=== PATIENT | female | born 1955 | race Hispanic/Latino ===

== ENCOUNTER 2017-08-07 07:05 | Emergency (ER) | payer MEDICARE ==
[2017-08-07] MEDS ORDERED: ACETAMINOPHEN 325 MG TAB ONE (07:23)
[2017-08-07] MEDS ORDERED: KETOROLAC TROMETHAMINE 30MG/ML ONE (07:23)
== END 2017-08-07 08:34 | disposition home or self-care (01) ==
LOC: EDH 07:05
DX: S62.668A Nondisplaced fracture of distal phalanx of other finger, initial encounter for closed fracture (principal); M25.552 Pain in left hip; W18.39XA Other fall on same level, initial encounter; Y93.01 Activity, walking, marching and hiking; Y92.89 Other specified places as the place of occurrence of the external cause; Y99.8 Other external cause status
CPT/HCPCS: 29130; 73140; 96372; 99284; J1885

== ENCOUNTER 2017-08-23 21:13 | Emergency (ER) | payer MEDICARE ==
[2017-08-23] MEDS ORDERED: ACETAMINOPHEN EXTRA STRENGTH 500 MG TABLET ONE (21:45)
[2017-08-23] MEDS ORDERED: KETOROLAC TROMETHAMINE 60 MG/2 ML VIAL ONE (21:45)
== END 2017-08-23 21:57 | disposition home or self-care (01) ==
LOC: EDH 21:13
DX: S80.02XA Contusion of left knee, initial encounter (principal); E11.9 Type 2 diabetes mellitus without complications; E78.5 Hyperlipidemia, unspecified; I10 Essential (primary) hypertension; Z79.4 Long term (current) use of insulin; Z88.1 Allergy status to other antibiotic agents; W01.0XXA Fall on same level from slipping, tripping and stumbling without subsequent striking against object, initial encounter; Y93.01 Activity, walking, marching and hiking; Y92.89 Other specified places as the place of occurrence of the external cause; Y99.8 Other external cause status
CPT/HCPCS: 73562; 96372; 99284; J1885

== ENCOUNTER 2018-08-05 08:31 | Emergency (ER) | payer MEDICARE ==
[2018-08-05 09:03] LABS: APPEARANCE,URINE TURBID (CLEAR); BILIRUBIN,URINE NEGATIVE (NEGATIVE); COLOR,URINE YELLOW (YELLOW); GLUCOSE, URINE (UA) 250 mg/dL (NEGATIVE); KETONES,URINE NEGATIVE (NEGATIVE); LEUKOCYTE ESTERASE ,URINE MODERATE (NEGATIVE); NITRATE,URINE NEGATIVE (NEGATIVE); OCCULT BLOOD,URINE LARGE (NEGATIVE); PH,URINE 6.5 (5.0-8.0); PROTEIN,URINE >=300 mg/dL (NEGATIVE); UROBILINOGEN,URINE 0.2 mg/dL (0.2-1.0)
[2018-08-05 09:25] LABS: RAPID GROUP A STREP NEGATIVE (NEGATIVE)
[2018-08-05 09:26] LABS: BACTERIA,URINE Many /HPF (None Seen); WBC,URINE TNTC /HPF (0-1)
[2018-08-05 09:27] LABS: SQUAMOUS EPITHELIAL CELL,UR Few /HPF (0-2); TRANSITIONAL EPI CELLS,URINE Few /HPF (None Seen)
[2018-08-05] MEDS ORDERED: CEFTRIAXONE SODIUM 1 GM ONE (09:48)
[2018-08-05] MEDS ORDERED: LIDOCAINE HCL-MPF 1% 2ML VIAL ONE (09:48)
== END 2018-08-05 10:59 | disposition home or self-care (01) ==
LOC: EDH 08:31
DX: N39.0 Urinary tract infection, site not specified (principal); R11.10 Vomiting, unspecified; I10 Essential (primary) hypertension; E11.9 Type 2 diabetes mellitus without complications; E78.5 Hyperlipidemia, unspecified; M19.90 Unspecified osteoarthritis, unspecified site; Z90.49 Acquired absence of other specified parts of digestive tract; Z98.890 Other specified postprocedural states; Z88.1 Allergy status to other antibiotic agents; Z88.2 Allergy status to sulfonamides
CPT/HCPCS: 81001; 87077; 87088; 87186; 87804 ×2; 87880; 96372; 99284; J0696; J3490

== ENCOUNTER 2019-06-26 12:36 | Inpatient (IN) | payer MEDICARE ==
[~2019-06-26] VITALS: Ht 160 cm; Wt 91.0 kg
[~2019-06-26 12:36] MED LIST: FLUC150T PO; HYDR25TA PO; INSU100V37 SQ; LOSA50TA64 PO; METR500T PO; NAPR-1023 PO; SITA100T12 PO; TRAM50TA4 PO
[2019-06-26] MEDS ORDERED: AMINOCAPROIC ACID 250 MG/ML 20 ML VIAL IV ONE (12:42)
[2019-06-26] MEDS ORDERED: ALBUMIN (HUMAN) 25% 50 ML IV ONE (12:42)
[2019-06-26] MEDS ORDERED: MANNITOL 25% 50ML VIAL IV ONE (12:42)
[2019-06-26] MEDS ORDERED: PHENYLEPHRINE HCL 10 MG/ML 1ML VIAL IV ONE (12:42)
[2019-06-26] MEDS ORDERED: CALCIUM CHLORIDE 100 MG/ML 10 ML SYG IVP ONE (12:42)
[2019-06-26] MEDS ORDERED: SODIUM BICARB 8.4% 50ML SYRINGE IVP ONE (12:42)
[2019-06-26] MEDS ORDERED: HEPARIN SODIUM 1000UNIT/ML 10ML VIAL IV ONE (12:42)
[2019-06-26] MEDS ORDERED: FUROSEMIDE 10 MG/ML 2ML VIAL IVP ONE (12:42)
[2019-06-26] MEDS ORDERED: MAGNESIUM SULFATE 1 GM/2 ML VIAL IM ONE (12:42)
[2019-06-26 13:15] VITALS: BP 174/70
[2019-06-26 13:47] LABS: BASOPHILS % (AUTO) 0.4 % (0.0-5.0); EOSINOPHILS % (AUTO) 3.5 % (0.0-8.0); HEMATOCRIT 37.8 % (36-48); LYMPHOCYTES % (AUTO) 20.9 % (21.0-51.0); MEAN CORPUSCULAR HEMOGLOBIN 28.2 pg (27.0-33.0); MEAN CORPUSCULAR HGB CONC 31.5 g/dL (32.0-36.0); MEAN CORPUSCULAR VOLUME 89.6 fL (79-99); MONOCYTES % (AUTO) 5.9 % (3.0-13.0); PLATELET COUNT (AUTO) 282 K/uL (130-400); RED BLOOD CELL COUNT(AUTO) 4.22 MIL/uL (4.00-5.50); RED CELL DISTRIBUTION WIDTH 13.9 % (11.0-15.5); WHITE BLOOD COUNT (AUTO) 7.1 K/uL (4.8-10.8)
[2019-06-26 13:59] LABS: INR 0.93 (0.85-1.15); PARTIAL THROMBOPLASTIN TIME 28.2 SEC (26.3-35.5); PROTHROMBIN TIME 10.1 SEC (9.6-11.6)
[2019-06-26 14:01] LABS: ALBUMIN 2.1 g/dL (3.5-5.0); BILIRUBIN,TOTAL 0.3 mg/dL (0.2-1.0); CREATININE 2.9 mg/dL (0.5-1.5); MAGNESIUM 2.9 mg/dL (1.80-2.40); TOTAL PROTEIN, SERUM 6.2 g/dL (6.0-8.3)
[2019-06-26 14:24] LABS: B-TYPE NATRIURETIC PEPTIDE 4110 pg/mL (0-100)
[2019-06-26] MEDS ORDERED: SITA50TA PO (15:30)
[2019-06-26] MEDS ORDERED: FERR325T22 PO (15:30)
--- NOTE | 2019-06-26 15:33 | NUR ---
DCP CM met with pt discussed dc plans. Pt is semi-independent prior to admission, lives at home alone, sometimes goes to boyfriend's home, daughter lives close by. Pt has a walker, provider 3hrs Mon-Fri and 1.5 hrs Sat/Sun, goes to [facility] during weekdays. Feels safe to go back home, daughter able to assist with transportation and needs as necessary. DC plan to home once stable. CM to cont to follow up. Addendum: 06/26/19 at 1536 by JASWANT BURRELL LVN CM Amended: Links added.
[2019-06-26 16:37] LABS: APPEARANCE,URINE Clear (CLEAR); BILIRUBIN,URINE Negative (NEGATIVE); COLOR,URINE Yellow (YELLOW); GLUCOSE, URINE (UA) 250 mg/dL (NEGATIVE); KETONES,URINE Negative (NEGATIVE); LEUKOCYTE ESTERASE ,URINE Negative (NEGATIVE); NITRATE,URINE Positive (NEGATIVE); OCCULT BLOOD,URINE Small (NEGATIVE); PROTEIN,URINE >=1000 mg/dL (NEGATIVE); UROBILINOGEN,URINE 0.2 mg/dL (0.2-1.0)
[2019-06-26 16:52] LABS: BACTERIA,URINE Many /HPF (None Seen); MUCUS,URINE Few LPF (None Seen)
[2019-06-26] MEDS ORDERED: HYDRALAZINE HCL 20 MG/ML VIAL IV PRN (18:00)
[2019-06-26] MEDS ORDERED: ACETAMINOPHEN 325 MG TAB PO PRN ×2 (18:00)
[2019-06-26] MEDS ORDERED: NITROGLYCERIN 0.4 MG SL TAB SL PRN (18:00)
[2019-06-26] MEDS ORDERED: GUAIFENESIN-DM 200/20 MG 10 ML PO PRN (18:00)
[2019-06-26 19:57] VITALS: BP 166/72
--- NOTE | 2019-06-26 20:45 | NUR ---
refused beck catheter patient refused beck catheter reporting that she is able to get up and go to the rr, explained that we needed accurate output while on diuretic therapy patient understood and further declined beck catheter at this time
[2019-06-26] MEDS: FUROSEMIDE 10 MG/ML 4ML VIAL IV SCH (21:15)
[2019-06-26] MEDS: INSULIN LISPRO 100 UNIT/ML 3ML SQ SCH (21:16)
[2019-06-26] MEDS: INSULIN GLARGINE 100 UNITS/ML 10 ML VIAL SQ SCH (21:20)
[2019-06-26 23:37] VITALS: BP 137/66
[2019-06-27 04:03] VITALS: BP 149/68
[2019-06-27 04:08] LABS: MEAN CORPUSCULAR HEMOGLOBIN 29.1 pg (27.0-33.0); MEAN CORPUSCULAR HGB CONC 32.6 g/dL (32.0-36.0); RED BLOOD CELL COUNT(AUTO) 3.82 MIL/uL (4.00-5.50); RED CELL DISTRIBUTION WIDTH 13.7 % (11.0-15.5); WHITE BLOOD COUNT (AUTO) 6.8 K/uL (4.8-10.8)
[2019-06-27 04:30] LABS: ALBUMIN 1.7 g/dL (3.5-5.0); BILIRUBIN,DIRECT 0.1 mg/dL (0.0-0.3); BILIRUBIN,TOTAL 0.2 mg/dL (0.2-1.0); CREATININE 3.3 mg/dL (0.5-1.5); PHOSPHORUS 5.2 mg/dL (2.5-4.9); POTASSIUM 3.7 mmol/L (3.5-5.1); THYROID STIMULATING HORMONE 1.62 uIU/mL (0.36-3.74); TOTAL PROTEIN, SERUM 5.3 g/dL (6.0-8.3); URIC ACID 6.1 mg/dL (2.6-7.2)
[2019-06-27] MEDS: INSULIN LISPRO 100 UNIT/ML 3ML SQ SCH ×7 (06:31→20:37)
[2019-06-27] MEDS: FUROSEMIDE 10 MG/ML 4ML VIAL IV SCH ×3 (06:40→20:37)
[2019-06-27 07:30] VITALS: BP 175/74
[2019-06-27] MEDS: FAMOTIDINE 20MG TAB 20 MG TAB PO SCH (09:31)
[2019-06-27] MEDS: ENOXAPARIN SODIUM 30 MG/0.3 ML SQ SCH (09:35)
--- NOTE | 2019-06-27 09:36 | NUR ---
BP ELEVATED -SEE V/S HYDRALAZINE NOT GIVEN DUE TO PATIENT REPORTS TOOK OWN HOME BP MEDICATIONS, LOSARTAN AND HYDROCHLORATHIZIDE AND UNABLE TO TELL ME DOSE BECAUSE SHE HAS IN PILL BOX. INSTRUCTED TO HOLD HOME MEDICATIONS UNTIL DR CONTINUES, VERBALIZED UNDERSTANDING. WILL CONTINUE TO MONITOR.
[2019-06-27 11:00] VITALS: BP 142/69
[2019-06-27 16:00] VITALS: BP 154/58
[2019-06-27 20:04] VITALS: BP 137/65
[2019-06-27] MEDS: INSULIN GLARGINE 100 UNITS/ML 10 ML VIAL SQ SCH (20:37)
[2019-06-28] VITALS (7 sets, daily range): BP systolic 142–169; BP diastolic 52–79
[2019-06-28 04:02] LABS: BASOPHILS % (AUTO) 0.4 % (0.0-5.0); EOSINOPHILS % (AUTO) 4.7 % (0.0-8.0); HEMATOCRIT 34.1 % (36-48); LYMPHOCYTES % (AUTO) 26.2 % (21.0-51.0); MEAN CORPUSCULAR HEMOGLOBIN 28.4 pg (27.0-33.0); MEAN CORPUSCULAR HGB CONC 32.3 g/dL (32.0-36.0); MEAN CORPUSCULAR VOLUME 87.9 fL (79-99); MONOCYTES % (AUTO) 7.6 % (3.0-13.0); NEUTROPHILS % (AUTO) 60.7 % (40.0-77.0); PLATELET COUNT (AUTO) 251 K/uL (130-400); RED BLOOD CELL COUNT(AUTO) 3.88 MIL/uL (4.00-5.50); RED CELL DISTRIBUTION WIDTH 13.8 % (11.0-15.5); WHITE BLOOD COUNT (AUTO) 7.4 K/uL (4.8-10.8)
[2019-06-28 04:10] LABS: CREATININE 3.3 mg/dL (0.5-1.5); POTASSIUM 3.6 mmol/L (3.5-5.1)
[2019-06-28] MEDS: INSULIN LISPRO 100 UNIT/ML 3ML SQ SCH ×7 (05:34→21:00)
[2019-06-28] MEDS: FUROSEMIDE 10 MG/ML 4ML VIAL IV SCH ×2 (05:50→13:24)
--- NOTE | 2019-06-28 08:00 | NUR ---
AM ASSESSMENT PT SITTING IN CHAIR, WATCHING TV. A/O X 3. SOB ON EXERTION. NO DISTRESS NOTED. DENIES CHEST PAIN OR DISCOMFORT. DENIES PALPITATIONS. TELE: SR FREQ PVCs. DENIES N/V AND/OR DIARRHEA. UP W/ASSISTANCE. INSTRUCTED TO CALL FOR ASSISTANCE. CALL LONNY W/IN REACH.
[2019-06-28] MEDS: ENOXAPARIN SODIUM 30 MG/0.3 ML SQ SCH (08:39)
[2019-06-28] MEDS: FAMOTIDINE 20MG TAB 20 MG TAB PO SCH (08:40)
--- NOTE | 2019-06-28 08:40 | NUR ---
HOME MEDICATIONS PT TOOK JANUVIA PO FROM HER OWN HOME MEDICATIONS. PT INFORMED TO NOT BE TAKING HOME MEDICATIONS W/OUT NOTIFYING STAFF. PT STATES BEING DIABETIC & NEEDING HER DIABETIC MEDICATIONS AND IT HAS NOT BEEN GIVEN TO HER. EXPLAINED TO PT MD IS TO RESUME HOME MEDS INDICATED BY HER STATUS & BLOOD WORK. AT THIS TIME MD HAS NOT NOT RESUMED HOME MEDICATIONS. HER DIABETES IS BEING ADDRESSED BY W/INSULIN COVERAGE. PT AGREES TO NOT CONTINUE TAKING HOME MEDICATIONS FROM HOME.
[2019-06-28 10:03] LABS: CREATININE 3.2 mg/dL (0.5-1.5); POTASSIUM 3.4 mmol/L (3.5-5.1)
[2019-06-28] MEDS ORDERED: POTASSIUM CHLORIDE 20 MEQ ERTAB PO SCH (14:15)
--- NOTE | 2019-06-28 16:20 | NUR ---
HOME MEDICATIONS PT TOOK OWN BP MEDICATIONS FROM HOME W/OUT NOTIFYING STAFF @ TIME TAKEN. PT STATES HER BLOOD PRESSURE IS HIGH AND NOTHING IS BEING DONE ABOUT IT. INFORMED PT BP HAS BEEN STABLE AND IF BP IS HIGH PRN MEDICATION TO BE GIVEN. REMINDED PT MD HAS NOT RESUMED HER HOME MEDICATIONS. PT ASKED AGAIN TO NOT BE TAKING HOME MEDICATIONS W/OUT ASKING STAFF. PT AGREES TO NOT TAKE ANYMORE HOME MEDICATIONS ON HER OWN. PT HAS AGREED BEFORE TO NOT TAKING HOME MEDICATIONS AND HAS TAKEN MEDICATIONS W/OUT NOTIFYING STAFF.
--- NOTE | 2019-06-28 16:29 | NUR ---
HTN BP 169/79. HYDRALAZINE IV TO BE GIVEN PRN FOR SBP > 160. PRN MEDICATION NOT GIVEN, SINCE HAS STATED TAKEN OWN BP MEDICATIONS FROM HOME.
[2019-06-28] MEDS: INSULIN GLARGINE 100 UNITS/ML 10 ML VIAL SQ SCH ×2 (21:00→21:37)
--- NOTE | 2019-06-28 21:00 | NUR ---
MED NOT GIVEN LANTUS NOT GIVEN D/T PT REFUSING TO TAKE THIS MED. SAYS IF SHE TAKES THE MEDICATION HER BLOOD SUGAR DROPS TOO LOW. WILL CONT TO MONITOR AND REASSESS IN THE AM
--- NOTE | 2019-06-28 23:30 | NUR ---
TRANSFER OF CARE Report received from Robyn HERNANDEZ to assume care of pt. Resting in bed on rounds, alert and oriented x 3. No complaints of chest pain, no shortness of breath, Non pitting edema to parminder lower extremities. Pending a left heart cath on Monday am, NPO post Monday night.
[2019-06-29 03:56] VITALS: BP 131/60
[2019-06-29 04:53] LABS: HEMATOCRIT 32.9 % (36-48); MEAN CORPUSCULAR HEMOGLOBIN 29.2 pg (27.0-33.0); MEAN CORPUSCULAR HGB CONC 33.1 g/dL (32.0-36.0); MEAN CORPUSCULAR VOLUME 88.2 fL (79-99); RED BLOOD CELL COUNT(AUTO) 3.73 MIL/uL (4.00-5.50); RED CELL DISTRIBUTION WIDTH 13.6 % (11.0-15.5)
[2019-06-29 05:16] LABS: CREATININE 3.3 mg/dL (0.5-1.5); MAGNESIUM 2.5 mg/dL (1.80-2.40); POTASSIUM 3.5 mmol/L (3.5-5.1)
[2019-06-29] MEDS: INSULIN LISPRO 100 UNIT/ML 3ML SQ SCH ×7 (06:52→21:00)
[2019-06-29 08:23] VITALS: BP 144/70
[2019-06-29 08:44] LABS: CREATININE 3.5 mg/dL (0.5-1.5); POTASSIUM 3.6 mmol/L (3.5-5.1)
--- NOTE | 2019-06-29 08:56 | NUR ---
Lea WILKINS, JONES, IN ROOM SPEAKING WITH PT. RE:PLAN OF CARE, INCLUDING LHC SCHEDULED FOR MONDAY. QUESTIONS ANSWERED BY MANAGER CUSTOMER.
[2019-06-29] MEDS ORDERED: AMLODIPINE BESYLATE 5 MG TAB PO SCH (09:00)
[2019-06-29] MEDS: FERROUS SULFATE 325 MG TABLET.DR PO SCH (09:50)
[2019-06-29] MEDS: FUROSEMIDE 40 MG TABLET PO SCH (09:50)
[2019-06-29] MEDS: FAMOTIDINE 20MG TAB 20 MG TAB PO SCH (09:50)
[2019-06-29] MEDS: ENOXAPARIN SODIUM 30 MG/0.3 ML SQ SCH (09:51)
[2019-06-29 11:08] VITALS: BP 132/72
[2019-06-29 16:33] VITALS: BP 140/71
[2019-06-29 20:11] VITALS: BP 149/69
[2019-06-29] MEDS: INSULIN GLARGINE 100 UNITS/ML 10 ML VIAL SQ SCH (21:00)
[2019-06-29 23:13] VITALS: BP 138/45
[2019-06-30 03:19] VITALS: BP 149/66
[2019-06-30 05:15] LABS: HEMATOCRIT 33.1 % (36-48); MEAN CORPUSCULAR HEMOGLOBIN 28.6 pg (27.0-33.0); MEAN CORPUSCULAR HGB CONC 32.6 g/dL (32.0-36.0); MEAN CORPUSCULAR VOLUME 87.8 fL (79-99); RED BLOOD CELL COUNT(AUTO) 3.77 MIL/uL (4.00-5.50); RED CELL DISTRIBUTION WIDTH 13.8 % (11.0-15.5); WHITE BLOOD COUNT (AUTO) 6.5 K/uL (4.8-10.8)
[2019-06-30 05:27] LABS: CREATININE 3.2 mg/dL (0.5-1.5); POTASSIUM 3.4 mmol/L (3.5-5.1)
[2019-06-30] MEDS: INSULIN LISPRO 100 UNIT/ML 3ML SQ SCH ×7 (06:53→20:30)
[2019-06-30 07:30] VITALS: BP 150/64
[2019-06-30] MEDS ORDERED: SODIUM CHLORIDE 0.9% 500ML 500 ML IV SCH (09:17)
[2019-06-30] MEDS ORDERED: METHYLPREDNISOLONE SOD SUCC 125MG/2ML VIAL IVP PRN (09:30)
[2019-06-30] MEDS ORDERED: DiphenhydrAMINE HCL 50 MG/ML VIAL IVP PRN (09:30)
[2019-06-30] MEDS: FERROUS SULFATE 325 MG TABLET.DR PO SCH (09:43)
[2019-06-30] MEDS: FUROSEMIDE 40 MG TABLET PO SCH (09:44)
[2019-06-30] MEDS: FAMOTIDINE 20MG TAB 20 MG TAB PO SCH (09:44)
[2019-06-30] MEDS: ENOXAPARIN SODIUM 30 MG/0.3 ML SQ SCH (09:45)
[2019-06-30 09:51] LABS: CREATININE 3.1 mg/dL (0.5-1.5); POTASSIUM 3.6 mmol/L (3.5-5.1)
[2019-06-30 11:12] VITALS: BP 150/76
[2019-06-30] MEDS ORDERED: AMLODIPINE BESYLATE 5 MG TAB PO SCH (11:15)
[2019-06-30 15:01] LABS: APPEARANCE,URINE Cloudy (CLEAR); BILIRUBIN,URINE Negative (NEGATIVE); COLOR,URINE Yellow (YELLOW); GLUCOSE, URINE (UA) 500 mg/dL (NEGATIVE); KETONES,URINE Negative (NEGATIVE); LEUKOCYTE ESTERASE ,URINE Trace (NEGATIVE); NITRATE,URINE Negative (NEGATIVE); OCCULT BLOOD,URINE Small (NEGATIVE); PROTEIN,URINE >=1000 mg/dL (NEGATIVE); UROBILINOGEN,URINE 0.2 mg/dL (0.2-1.0)
--- NOTE | 2019-06-30 15:12 | NUR ---
DR. Kamryn CORREIA IN ROOM SPEAKING WITH PT. RE:PLAN OF CARE.
[2019-06-30 15:20] LABS: BACTERIA,URINE Many /HPF (None Seen); SQUAMOUS EPITHELIAL CELL,UR Rare /HPF (0-2)
[2019-06-30 16:03] VITALS: BP 137/69
[2019-06-30 19:31] VITALS: BP 141/79
[2019-06-30] MEDS: LACTULOSE 20 GM/30 ML UDCUP PO PRN (20:30)
[2019-06-30] MEDS: INSULIN GLARGINE 100 UNITS/ML 10 ML VIAL SQ SCH (20:31)
[2019-06-30 23:27] VITALS: BP 139/74
[2019-07-01] VITALS (8 sets, daily range): BP systolic 122–155; BP diastolic 69–98
[2019-07-01] MEDS: INSULIN LISPRO 100 UNIT/ML 3ML SQ SCH ×7 (05:01→21:43)
[2019-07-01 05:54] LABS: HEMATOCRIT 34.4 % (36-48); MEAN CORPUSCULAR HEMOGLOBIN 29.2 pg (27.0-33.0); MEAN CORPUSCULAR HGB CONC 32.8 g/dL (32.0-36.0); MEAN CORPUSCULAR VOLUME 88.9 fL (79-99); PLATELET COUNT (AUTO) 234 K/uL (130-400); RED BLOOD CELL COUNT(AUTO) 3.87 MIL/uL (4.00-5.50); RED CELL DISTRIBUTION WIDTH 13.6 % (11.0-15.5)
[2019-07-01 06:01] LABS: INR 0.89 (0.85-1.15); PARTIAL THROMBOPLASTIN TIME 20.4 SEC (26.3-35.5); PROTHROMBIN TIME 9.7 SEC (9.6-11.6)
[2019-07-01 06:06] LABS: POTASSIUM 3.5 mmol/L (3.5-5.1)
[2019-07-01 07:39] LABS: EOSINOPHILS % (MANUAL) 3 % (1-6); LYMPHOCYTES % (MANUAL) 21 % (22-44); MAN.DIFF COMMENT-IMPRESSION MANUAL DIFFERENTIAL; MONOCYTES % (MANUAL) 5 % (2-9); PLATELET MORPHOLOGY COMMENT ADEQUATE; SEGMENTED NEUTROPHILS % 71 % (40-70)
[2019-07-01] MEDS ORDERED: SODIUM BICARB 50MEQ 50ML VIAL ONE (08:10)
[2019-07-01] MEDS ORDERED: LIDOCAINE HCL 2% 20ML ONE (08:10)
[2019-07-01] MEDS ORDERED: IOHEXOL 350 MG/ML 100ML INFUS..BTL IV ONE (08:10)
[2019-07-01] MEDS ORDERED: NITROGLYCERIN 2 MG/VIAL VIAL IV ONE (08:10)
[2019-07-01] MEDS ORDERED: AMLODIPINE BESYLATE 5 MG TAB PO SCH (09:00)
[2019-07-01] MEDS ORDERED: LABETALOL 20 MG/4 ML DISP.SYRIN IV ONE (09:19)
[2019-07-01] MEDS: FERROUS SULFATE 325 MG TABLET.DR PO SCH (10:09)
[2019-07-01] MEDS: FAMOTIDINE 20MG TAB 20 MG TAB PO SCH (10:09)
[2019-07-01] MEDS: FUROSEMIDE 40 MG TABLET PO SCH (10:09)
[2019-07-01] MEDS: MEROPENEM 500 MG VIAL IVP SCH (20:17)
[2019-07-01] MEDS: INSULIN GLARGINE 100 UNITS/ML 10 ML VIAL SQ SCH (21:48)
[2019-07-01] MEDS: ACETYLCYSTEINE 10% 100MG/ML 4ML VIAL PO SCH (21:53)
[2019-07-02] VITALS (14 sets, daily range): BP systolic 89–159; BP diastolic 40–89
[2019-07-02 04:39] LABS: APPEARANCE,URINE Clear (CLEAR); BILIRUBIN,URINE Negative (NEGATIVE); COLOR,URINE Yellow (YELLOW); GLUCOSE, URINE (UA) 500 mg/dL (NEGATIVE); KETONES,URINE Negative (NEGATIVE); LEUKOCYTE ESTERASE ,URINE Negative (NEGATIVE); NITRATE,URINE Negative (NEGATIVE); OCCULT BLOOD,URINE Small (NEGATIVE); PH,URINE 6.5 (5.0-8.0); PROTEIN,URINE >=1000 mg/dL (NEGATIVE); UROBILINOGEN,URINE 0.2 mg/dL (0.2-1.0)
[2019-07-02 05:09] LABS: AMORPHOUS SEDIMENT,UR Few /LPF (None Seen); BACTERIA,URINE Few /HPF (None Seen); SQUAMOUS EPITHELIAL CELL,UR 0-2 /HPF (0-2)
[2019-07-02] MEDS: MEROPENEM 500 MG VIAL IVP SCH ×2 (05:49→18:00)
[2019-07-02 06:11] LABS: HEMATOCRIT 37.4 % (36-48); MEAN CORPUSCULAR HGB CONC 33.2 g/dL (32.0-36.0); MEAN CORPUSCULAR VOLUME 87.4 fL (79-99); RED BLOOD CELL COUNT(AUTO) 4.28 MIL/uL (4.00-5.50); RED CELL DISTRIBUTION WIDTH 13.5 % (11.0-15.5); WHITE BLOOD COUNT (AUTO) 11.2 K/uL (4.8-10.8)
[2019-07-02 06:19] LABS: INR 0.92 (0.85-1.15); PARTIAL THROMBOPLASTIN TIME 26.3 SEC (26.3-35.5)
[2019-07-02 06:28] LABS: ALBUMIN 2.2 g/dL (3.5-5.0); BILIRUBIN,TOTAL 0.3 mg/dL (0.2-1.0); CREATININE 3.4 mg/dL (0.5-1.5); MAGNESIUM 2.5 mg/dL (1.80-2.40); POTASSIUM 3.6 mmol/L (3.5-5.1); TOTAL PROTEIN, SERUM 6.3 g/dL (6.0-8.3)
[2019-07-02] MEDS: INSULIN LISPRO 100 UNIT/ML 3ML SQ SCH ×2 (06:33→06:34)
[2019-07-02] MEDS: ACETYLCYSTEINE 10% 100MG/ML 4ML VIAL PO SCH ×2 (09:00→21:00)
[2019-07-02] MEDS: FERROUS SULFATE 325 MG TABLET.DR PO SCH (09:00)
[2019-07-02] MEDS: FAMOTIDINE 20MG TAB 20 MG TAB PO SCH (09:00)
[2019-07-02] MEDS: FUROSEMIDE 40 MG TABLET PO SCH (09:00)
[2019-07-02] MEDS ORDERED: NOREPINEPHRINE BITARTRATE 8 MG in DEXTROSE 5%-WATER 250 ML IV PRN (09:15)
[2019-07-02] MEDS ORDERED: EPINEPHRINE 10 MG in SODIUM CHLORIDE 0.9% 240 ML IV PRN (09:15)
[2019-07-02] MEDS ORDERED: AMINOCAPROIC ACID 15,000 MG in SODIUM CHLORIDE 0.9% 500ML 500 ML IV PRN (09:15)
[2019-07-02] MEDS ORDERED: NOREPINEPHRINE BITARTRATE 1 MG/1 ML ML IV ONE ×2 (09:47→16:08)
[2019-07-02] MEDS ORDERED: AMINOCAPROIC ACID 250 MG/ML 20 ML VIAL IV ONE (09:47)
[2019-07-02] MEDS ORDERED: ESMOLOL HCL 10 MG/ML 10 ML VIAL ONE ×2 (09:47→09:48)
[2019-07-02] MEDS ORDERED: HEPARIN SODIUM 1000UNIT/ML 10ML VIAL ONE ×2 (09:47→11:35)
[2019-07-02] MEDS ORDERED: LIDOCAINE PF 2% 5ML ABBOJECT ONE (09:47)
[2019-07-02] MEDS ORDERED: SODIUM BICARB 50MEQ 50ML VIAL ONE ×2 (09:47→15:24)
[2019-07-02] MEDS ORDERED: EPINEPHRINE 1 MG/ML AMPULE ONE (09:47)
[2019-07-02] MEDS ORDERED: PROTAMINE SULFATE 10 MG/ML 25ML VIAL IV ONE (09:47)
[2019-07-02] MEDS ORDERED: ETOMIDATE 2 MG/ML 10 ML VIAL ONE (09:48)
[2019-07-02] MEDS ORDERED: MIDAZOLAM HCL 1 MG/ML 2ML VIAL ONE (09:48)
[2019-07-02] MEDS ORDERED: FENTANYL CITRATE PF 50 MCG/1 ML 20ML VIAL IJ ONE ×2 (09:48→17:50)
[2019-07-02] MEDS ORDERED: ROCURONIUM 10MG/1ML SYR 10 MG/ML ML ONE ×3 (09:48→15:13)
[2019-07-02] MEDS ORDERED: VASOPRESSIN 20 UNITS/ML 1ML VIAL ONE (09:49)
[2019-07-02] MEDS ORDERED: AMIODARONE HCL 50 MG/ML 3 ML VIAL ONE ×2 (09:49→14:54)
[2019-07-02] MEDS ORDERED: CEFAZOLIN SODIUM 1 GM VIAL ONE ×2 (10:30→15:53)
[2019-07-02] MEDS ORDERED: ROPIVACAINE 0.5% 5MG/ML 30ML IJ ONE (10:30)
[2019-07-02] MEDS ORDERED: SODIUM CHLORIDE 0.9% 1000ML 1,000 ML IV ONE (10:32)
[2019-07-02] MEDS ORDERED: NITROGLYCERIN 50 MG/D5% WATER 1 BOT ONE (10:38)
[2019-07-02] MEDS ORDERED: CEFAZOLIN SODIUM 1 GM VIAL IVP PRN (11:00)
[2019-07-02] MEDS ORDERED: DELNIDO FORMULA 2 BAG IV ONE (11:36)
[2019-07-02] MEDS ORDERED: SODIUM CHLORIDE 0.9% 500ML 500 ML IV SCH (11:54)
[2019-07-02] MEDS ORDERED: MAGNESIUM 2GM PREMIX 50ML 50 ML IV PRN (12:00)
[2019-07-02] MEDS ORDERED: ACETAMINOPHEN 325 MG TAB PO PRN (12:00)
[2019-07-02] MEDS ORDERED: ONDANSETRON HCL 4 MG/2 ML VIAL IV PRN (12:00)
[2019-07-02] MEDS ORDERED: SODIUM CHLORIDE 0.9% 10 ML VIAL IVP PRN (12:00)
[2019-07-02] MEDS ORDERED: POTASSIUM PHOS 15 mMOL+NS250ML 250 ML IV PRN (12:00)
[2019-07-02] MEDS ORDERED: SODIUM CHLORIDE 0.9% 1000ML 1,000 ML IV SCH (12:00)
[2019-07-02] MEDS ORDERED: INSULIN REGULAR, HUMAN 3ML 100 UNIT in SODIUM CHLORIDE 0.9% 99 ML IV SCH ×2 (12:00)
[2019-07-02] MEDS ORDERED: AMINOCAPROIC ACID 15,000 MG in SODIUM CHLORIDE 0.9% 250 ML IV SCH (12:00)
[2019-07-02] MEDS ORDERED: SODIUM CHLORIDE 0.9% 250 ML IV PRN (12:00)
[2019-07-02] MEDS ORDERED: NOREPINEPHRINE 4MG/NS 250ML 250 ML IV PRN (12:00)
[2019-07-02] MEDS ORDERED: ALBUMIN (HUMAN) 5% 250 ML IV PRN (12:00)
[2019-07-02] MEDS ORDERED: ACETAMINOPHEN 650 MG SUPPOSITORY RC PRN (12:00)
[2019-07-02] MEDS ORDERED: MORPHINE SULFATE 2 MG/ML 1ML SYG IV PRN ×2 (12:00)
[2019-07-02] MEDS ORDERED: GLUCAGON 1MG KIT 1 MG ML IM PRN (12:00)
[2019-07-02] MEDS ORDERED: NITROGLYCERIN 50 MG/D5% WATER 250 BOT IV SCH (12:00)
[2019-07-02] MEDS ORDERED: DEXTROSE 50%-WATER 50 ML DISP.SYRIN IV PRN (12:00)
[2019-07-02 12:42] LABS: ABG BASE EXCESS -4.9 mmol/L (-2.0-3.0); ABG HCO3 19.8 mmol/L (21.0-28.0); ABG OXYGEN SATURATION 98.6 % (95.0-99.0); ABG PCO2 35 mmHg (32-45)
[2019-07-02] MEDS ORDERED: ALBUMIN (HUMAN) 5% 250 ML IV ONE (13:07)
[2019-07-02 13:38] LABS: ABG BASE EXCESS -6.7 mmol/L (-2.0-3.0); ABG HCO3 17.6 mmol/L (21.0-28.0); ABG OXYGEN SATURATION 98.8 % (95.0-99.0); ABG PCO2 31 mmHg (32-45)
[2019-07-02 13:43] LABS: ABG OXYGEN SATURATION 69.8 % (95.0-99.0); BASE EXCESS,VENOUS BLOOD GAS -5.2 (-2.0-3.0); HCO3,VENOUS BLOOD GAS 20.4 (21.0-28.0); PCO2,VENOUS BLOOD GAS 41 (32-45)
[2019-07-02 14:21] LABS: ABG BASE EXCESS 0.7 mmol/L (-2.0-3.0); ABG HCO3 24.3 mmol/L (21.0-28.0); ABG OXYGEN SATURATION 98.7 % (95.0-99.0); ABG PCO2 35 mmHg (32-45)
[2019-07-02] MEDS ORDERED: INSULIN HUMULIN R 100 UNIT/ML 3ML ONE ×2 (14:23→14:25)
[2019-07-02] MEDS ORDERED: DELNIDO FORMULA 1 BAG IV ONE (15:02)
[2019-07-02 15:07] LABS: ABG BASE EXCESS -4.5 mmol/L (-2.0-3.0); ABG HCO3 20.3 mmol/L (21.0-28.0); ABG OXYGEN SATURATION 98.9 % (95.0-99.0); ABG PCO2 36 mmHg (32-45)
[2019-07-02 15:35] LABS: ABG BASE EXCESS -4.2 mmol/L (-2.0-3.0); ABG HCO3 22.3 mmol/L (21.0-28.0); ABG OXYGEN SATURATION 98.6 % (95.0-99.0); ABG PCO2 47 mmHg (32-45)
[2019-07-02] MEDS ORDERED: SODIUM CHLORIDE 0.9% 10 ML VIAL ONE (15:56)
[2019-07-02 16:06] LABS: ABG BASE EXCESS -4.8 mmol/L (-2.0-3.0); ABG PCO2 48 mmHg (32-45)
[2019-07-02] MEDS ORDERED: PROTAMINE SULFATE 10 MG/ML 5 ML VIAL ONE (16:53)
[2019-07-02] MEDS ORDERED: CEFAZOLIN SODIUM 1 GM VIAL IV SCH (17:00)
[2019-07-02 17:10] LABS: ABG BASE EXCESS -1.2 mmol/L (-2.0-3.0); ABG OXYGEN SATURATION 98.6 % (95.0-99.0); ABG PCO2 42 mmHg (32-45)
[2019-07-02] MEDS ORDERED: POTASSIUM CHLORIDE 20MEQ/100ML 200 ML IV ONE (17:19)
--- NOTE | 2019-07-02 18:11 | NUR ---
PT ARRIVES FROM O.R.--INTUBATED, IABP IN PLACE 1:1 SETTING. EPINEPHRINE IV DRIP, LEVOPHED IV DRIP, AMIKAR IV INFUSION, LT RADIAL A-LINE, RIJ CORDIS/SWAN AMBROSIO CATH IN PLACE, ARIZA CATH TO BSD
[2019-07-02 18:26] LABS: ABG BASE EXCESS -6.5 mmol/L (-2.0-3.0); ABG HCO3 19.5 mmol/L (21.0-28.0); ABG OXYGEN SATURATION 97.9 % (95.0-99.0); ABG PCO2 41 mmHg (32-45)
[2019-07-02] MEDS: SODIUM BICARB 50MEQ 50ML VIAL IV PRN ×4 (18:45→22:17)
[2019-07-02] MEDS: CALCIUM GLUCONATE 1 GM in SODIUM CHLORIDE 0.9% 50 ML IV PRN ×3 (18:45→23:27)
[2019-07-02 18:46] LABS: HEMATOCRIT 34.8 % (36-48); MEAN CORPUSCULAR HEMOGLOBIN 28.9 pg (27.0-33.0); MEAN CORPUSCULAR HGB CONC 32.2 g/dL (32.0-36.0); MEAN CORPUSCULAR VOLUME 89.7 fL (79-99); PLATELET COUNT (AUTO) 177 K/uL (130-400); RED BLOOD CELL COUNT(AUTO) 3.88 MIL/uL (4.00-5.50); RED CELL DISTRIBUTION WIDTH 13.9 % (11.0-15.5)
[2019-07-02] MEDS: POTASSIUM CHLORIDE 20MEQ/100ML 100 ML IV PRN ×5 (18:46→22:38)
[2019-07-02 18:53] LABS: INR 1.25 (0.85-1.15); PARTIAL THROMBOPLASTIN TIME 25.9 SEC (26.3-35.5); PROTHROMBIN TIME 13.4 SEC (9.6-11.6)
[2019-07-02 18:59] LABS: WHITE BLOOD COUNT (AUTO) 30.7 K/uL (4.8-10.8)
[2019-07-02 19:00] LABS: MAGNESIUM 4.3 mg/dL (1.80-2.40)
[2019-07-02] MEDS: PROPOFOL 1000 MG/100 ML 100 ML IV PRN (19:02)
[2019-07-02] MEDS ORDERED: PHARMACY COMMUNICATION MISC SCH (19:15)
--- NOTE | 2019-07-02 19:20 | NUR ---
HAND OFF REPORT GIVEN TO SIMONE HERNANDEZ
[2019-07-02 19:30] LABS: BAND NEUTROPHILS % (MANUAL) 5 % (0-2); BASOPHILS % (MANUAL) 1 % (0-2); LYMPHOCYTES % (MANUAL) 5 % (22-44); MAN.DIFF COMMENT-IMPRESSION MANUAL DIFFERENTIAL; METAMYELOCYTES % 2 % (0-0); MONOCYTES % (MANUAL) 2 % (2-9); PLATELET MORPHOLOGY COMMENT ADEQUATE; SEGMENTED NEUTROPHILS % 85 % (40-70)
[2019-07-02] MEDS ORDERED: NOREPINEPHRINE BITARTRATE 8 MG in SODIUM CHLORIDE 0.9% 250 ML IV SCH (19:30)
--- NOTE | 2019-07-02 19:30 | NUR ---
ASSESSMENT PT ASSESSED AT THIS TIME. PT SEDATED ON MECHANICAL VENTILATION VIA ET TUBE 8.0 TAPPED AT APPROXIMATELY 20CM LIP. BILATERAL BREATH SOUNDS AUSCULTATED. VENT SETTINGS SIMV RATE 12, VT 600, PEEP 5, PS 10, FIO2 60%. MID LINE INCISION DRESSING INTACT AND RIGHT UPPER CHEST DRESSING INTACT. CHEST TUBES X 3 NOTED TO 20 CMH20 SUCTION. DRAINAGE IS SANGUINEOUS IN COLOR. ARIZA TO GRAVITY DRAINING WELL. LEFT FEMORAL IABP IN PLACE SET AT 1:1 FREQUENCY. PULSES TO LOWER EXT PER DOPPLER. RIJ CORDIS INFUSING WELL. LEFT RADIAL A LINE WITH GOOD WAVEFORM. PIV TO RIGHT FOREARM X 2. IV MEDICATIONS LEVOPHED AT 9MCG/MIN, EPI AT 0.11 MCG/KG/MIN, AMICAR AT 50ML/HR AND NS AT KVO. PT 100% PACED AT THIS TIME PACER SET AT 90. SEE ASSESSMENT.
[2019-07-02 19:58] LABS: ABG BASE EXCESS -2.2 mmol/L (-2.0-3.0); ABG HCO3 21.5 mmol/L (21.0-28.0); ABG OXYGEN SATURATION 97.5 % (95.0-99.0); ABG PCO2 34 mmHg (32-45)
[2019-07-02] MEDS: INSULIN REGULAR, HUMAN 3ML 100 UNIT in SODIUM CHLORIDE 0.9% 99 ML IV SCH ×2 (20:16)
[2019-07-02] MEDS: INSULIN GLARGINE 100 UNITS/ML 10 ML VIAL SQ SCH (20:38)
--- NOTE | 2019-07-02 21:54 | NUR ---
DR. NEL NEUMANN CALLED AND UPDATED ON PT STATUS LATEST VS, I&O'S DRIPS. NEW ORDERS RECEIVED AND WILL BE CARRIED OUT. PACER DECREASED TO 64 AT THIS TIME DUE TO INABILITY TO SET AT 65.
[2019-07-02 22:09] LABS: ABG BASE EXCESS -0.5 mmol/L (-2.0-3.0); ABG HCO3 23.1 mmol/L (21.0-28.0); ABG OXYGEN SATURATION 98.5 % (95.0-99.0); ABG PCO2 35 mmHg (32-45)
[2019-07-03] VITALS (25 sets, daily range): BP systolic 101–148; BP diastolic 42–77
[2019-07-03] MEDS: CEFAZOLIN SODIUM 1 GM VIAL IV SCH ×3 (00:12→16:33)
[2019-07-03 00:14] LABS: ABG BASE EXCESS 0.8 mmol/L (-2.0-3.0); ABG HCO3 24.8 mmol/L (21.0-28.0); ABG OXYGEN SATURATION 97.5 % (95.0-99.0); ABG PCO2 38 mmHg (32-45)
[2019-07-03] MEDS: PROPOFOL 1000 MG/100 ML 100 ML IV PRN (00:20)
--- NOTE | 2019-07-03 02:00 | NUR ---
STATUS PT BEGINNING TO MOVE AROUND AND MADE AWARE SHE IS POST OP IN RECOVERY ROOM. WHEN ASKED IF IN PAIN NODS NO. PT IS ABLE TO MOVE BILATERAL EXTS EQUALLY AND FOLLOW SIMPLE COMMANDS. WILL CONTINUE TO MONITOR.
[2019-07-03 02:21] LABS: ABG BASE EXCESS 2.8 mmol/L (-2.0-3.0); ABG HCO3 26.1 mmol/L (21.0-28.0); ABG OXYGEN SATURATION 97.9 % (95.0-99.0); ABG PCO2 36 mmHg (32-45)
[2019-07-03] MEDS: CALCIUM GLUCONATE 1 GM in SODIUM CHLORIDE 0.9% 50 ML IV PRN ×2 (02:23→06:18)
[2019-07-03] MEDS: POTASSIUM CHLORIDE 20MEQ/100ML 100 ML IV PRN (02:23)
[2019-07-03] MEDS: EPINEPHRINE 10 MG in DEXTROSE 5%-WATER 250 ML IV PRN ×2 (02:26→11:29)
[2019-07-03 04:22] LABS: HEMATOCRIT 34.8 % (36-48); MEAN CORPUSCULAR HEMOGLOBIN 28.7 pg (27.0-33.0); MEAN CORPUSCULAR HGB CONC 33.6 g/dL (32.0-36.0); MEAN CORPUSCULAR VOLUME 85.5 fL (79-99); RED BLOOD CELL COUNT(AUTO) 4.07 MIL/uL (4.00-5.50); RED CELL DISTRIBUTION WIDTH 14.1 % (11.0-15.5); WHITE BLOOD COUNT (AUTO) 18.8 K/uL (4.8-10.8)
[2019-07-03 04:36] LABS: INR 1.06 (0.85-1.15); PARTIAL THROMBOPLASTIN TIME 27.1 SEC (26.3-35.5); PROTHROMBIN TIME 11.4 SEC (9.6-11.6)
[2019-07-03 04:37] LABS: CREATININE 3.5 mg/dL (0.5-1.5); MAGNESIUM 3.8 mg/dL (1.80-2.40); PHOSPHORUS 2.2 mg/dL (2.5-4.9); POTASSIUM 4.5 mmol/L (3.5-5.1)
[2019-07-03] MEDS: MEROPENEM 500 MG VIAL IVP SCH ×2 (05:02→17:42)
[2019-07-03 05:13] LABS: ABG BASE EXCESS 4.5 mmol/L (-2.0-3.0); ABG HCO3 27.3 mmol/L (21.0-28.0); ABG OXYGEN SATURATION 98.4 % (95.0-99.0); ABG PCO2 35 mmHg (32-45)
--- NOTE | 2019-07-03 05:20 | NUR ---
IABP LEVOPHED AT 5 MCG/MIN AND EPINEPHRINE DRIP AT 0.05 MCG/KG/MIN IABP DECREASED TO 1:2 AT THIS TIME PER MD ORDERS. WILL CONTINUE TO MONITOR.
[2019-07-03] MEDS ORDERED: PHARMACY COMMUNICATION MISC SCH (05:30)
--- NOTE | 2019-07-03 08:13 | NUR ---
PT IS RESPONSIVE TO VOICE. FOLLOWS COMMANDS. DR NEUMANN PULLED OUT IABP CATH AT 0710 AND I ASSUMED MANUAL PRESSURE FOR 30 MINUTES . PT HAS NO HEMATOMA OR BLEEDING TO LEFT FEMORAL SITE. PRESSURE DRESSING APPLIED AND PEDAL PULSES PALPABLE. PLAN IS TO WEAN PT FROM VENT TODAY. ALSO TO WEAN OFF PRESSORS.
[2019-07-03] MEDS ORDERED: ALBUMIN (HUMAN) 5% 250 ML IV PRN (08:15)
[2019-07-03] MEDS: FAMOTIDINE/PF 20 MG/2 ML VIAL IV SCH (08:38)
[2019-07-03] MEDS: FERROUS SULFATE 325 MG TABLET.DR PO SCH (08:39)
[2019-07-03] MEDS: FUROSEMIDE 10 MG/ML 4ML VIAL IV SCH ×2 (08:39→21:01)
[2019-07-03 09:49] LABS: ABG BASE EXCESS 2.6 mmol/L (-2.0-3.0); ABG OXYGEN SATURATION 98.2 % (95.0-99.0); ABG PCO2 41 mmHg (32-45)
--- NOTE | 2019-07-03 09:55 | NUR ---
EXTUBATED SUCCESSFULLY-NOW ON 40% AEROSOL MASK
--- NOTE | 2019-07-03 09:55 | NUR ---
Per MARY Anthony patient is not ready for skilled Physical Therapy evaluation today.Pt. recently extubated and on balloon pump. Addendum: 07/03/19 at 1439 by ARLEEN HIGGINS PT PT Amended: Links added.
[2019-07-03 11:09] LABS: ABG HCO3 29.4 mmol/L (21.0-28.0); ABG OXYGEN SATURATION 97.9 % (95.0-99.0); ABG PCO2 46 mmHg (32-45)
--- NOTE | 2019-07-03 14:29 | NUR ---
MARIAM SCREEN - LOS X 7 Pt s/p aortic valve repair. Currently mechanically ventilated, pending extubation/weaning. NPO at this time. When medically feasible, recommend advance diet as tolerated to Heart healthy, Renal Non Dialysis, 75gm CCD. Recommend 1200mL Fluid restriction RD to follow up for Nutrition Education assessment. Please notify as additional nutrition concerns arise. Thank you. Addendum: 07/03/19 at [address] RD Amended: Links added.
--- NOTE | 2019-07-03 16:33 | NUR ---
SPOKE TO DAUGHTER TABITHA AARON WHO STATES SHE WILL SEEK ANY HELP NECESSARY TO CARE FOR PT AT HOME POST DISCHARGE, NO PLACEMENT., HAS NECESSARY DME
[2019-07-03] MEDS: INSULIN REGULAR, HUMAN 3ML 100 UNIT in SODIUM CHLORIDE 0.9% 99 ML IV SCH ×2 (16:44)
[2019-07-03] MEDS: TRAMADOL HCL 50 MG TABLET PO PRN (17:08)
--- NOTE | 2019-07-03 17:15 | NUR ---
PT C/O PAIN TO CHEST INCISION WITH COUGH- I OFFERED HER 2 TRAMADOL. SHE REFUSED " I DO NOT WANT TRAMADOL, I DON'T WANT TO SLEEP" I EXPLAINED TO HER THAT PAIN MEDS WOULD HELP HER WITH HER COUGH AND HELP EXPECTORATE BETTER. SHE WAS SLEEPING AND I ALLOWED HER TO SPEAK TO HER DAUGHTER TABITHA ON THE PHONE AND IT TRIGGERED A COUGHING SPELL. I GAVE HER DAUGHTER AN UPDATE . PT BEGAN TO GET ANXIOUS BUT AFTER I TALKED TO HER AND EXPLAINED POST OP EXPECTATIONS SHE CALMED DOWN AND WENT BACK TO SLEEP
--- NOTE | 2019-07-03 17:27 | NUR ---
I CALLED DAUGHTER TABITHA BACK TO OFFER MY SUPPORT.HELPED HER WITH CURRENT FAMILY SITUATION AND ALL HER QUESTIONS .
--- NOTE | 2019-07-03 19:04 | NUR ---
Hand off report given to johny pham
[2019-07-03] MEDS: ONDANSETRON HCL 4 MG/2 ML VIAL IV PRN (19:35)
--- NOTE | 2019-07-03 20:17 | NUR ---
ASSESSMENT AWAKE RESTING IN BED. DENIES PAIN USES PILLOW TO SPLINT CHEST WITH DBC. REMINDED NOT TO USE ARMS TO PUSH OR PULL SELF WITH TO PREVENT STERNAL INJURY. REMINDED TO USE IS FOR 10 BREATHS Q1H WHILE AWAKE TO PREVENT PNEUMONIA. ASSESSMENT COMPLETED SEE FLOW SHEET.
[2019-07-04] VITALS (24 sets, daily range): BP systolic 106–166; BP diastolic 43–80
[2019-07-04] MEDS: TRAMADOL HCL 50 MG TABLET PO PRN ×2 (04:09→14:12)
[2019-07-04 04:26] LABS: HEMATOCRIT 30.1 % (36-48); MEAN CORPUSCULAR HEMOGLOBIN 29.4 pg (27.0-33.0); MEAN CORPUSCULAR HGB CONC 32.6 g/dL (32.0-36.0); MEAN CORPUSCULAR VOLUME 90.4 fL (79-99); RED BLOOD CELL COUNT(AUTO) 3.33 MIL/uL (4.00-5.50); RED CELL DISTRIBUTION WIDTH 15.2 % (11.0-15.5); WHITE BLOOD COUNT (AUTO) 20.9 K/uL (4.8-10.8)
[2019-07-04 05:03] LABS: ALBUMIN 1.9 g/dL (3.5-5.0); BILIRUBIN,TOTAL 0.3 mg/dL (0.2-1.0); MAGNESIUM 3.7 mg/dL (1.80-2.40); PHOSPHORUS 6.2 mg/dL (2.5-4.9); POTASSIUM 5.5 mmol/L (3.5-5.1); TOTAL PROTEIN, SERUM 4.6 g/dL (6.0-8.3)
[2019-07-04] MEDS: MEROPENEM 500 MG VIAL IVP SCH ×2 (06:03→18:13)
--- NOTE | 2019-07-04 07:30 | NUR ---
DR NEUMANN HERE TO SEE PT UPDATED. ORDERS RECEIVED AND CARRIED OUT.
[2019-07-04] MEDS ORDERED: PHARMACY COMMUNICATION MISC SCH ×2 (08:15→09:30)
[2019-07-04] MEDS ORDERED: SODIUM POLYSTYRENE SULFONATE 15 GM/60 ML ML PO SCH ×2 (08:15→20:00)
--- NOTE | 2019-07-04 08:20 | NUR ---
RECEIVED CALL FROM DR NEUMANN HE ORDERED TO CHANGE LASIX TO 40MG IV Q12HR.
[2019-07-04] MEDS: ACETYLCYSTEINE 600 MG CAPSULE PO SCH ×2 (09:00→20:10)
[2019-07-04] MEDS: FAMOTIDINE/PF 20 MG/2 ML VIAL IV SCH (09:07)
[2019-07-04] MEDS: FUROSEMIDE 10 MG/ML 4ML VIAL IV SCH ×2 (09:07→20:08)
[2019-07-04] MEDS: ASPIRIN 81 MG EC TAB PO SCH (09:08)
[2019-07-04] MEDS: FERROUS SULFATE 325 MG TABLET.DR PO SCH (09:08)
[2019-07-04] MEDS: METOPROLOL TARTRATE 25 MG TAB PO SCH ×2 (09:09→20:08)
[2019-07-04] MEDS: HEPARIN SODIUM 5000UNIT/ML 1ML VIAL SQ SCH (09:18)
--- NOTE | 2019-07-04 13:36 | NUR ---
DR CAMPO HERE TO SEE PT UPDATED. HE SPOKE TO PATIENT. PATIENT APPEARS ANXIOUS AND C/O NAUSEA. DR CAMPO INSTRUCTED HER ON STATUS AND PLAN OF CARE INCLUDING POSSIBLE HEMODIALYSIS.
--- NOTE | 2019-07-04 13:45 | NUR ---
DR Cathleen MORELOS HERE TO SEE PT UPDATED. HE EVALUATED PT AND ATTEMPTED TO EXPLAIN TO HER STATUS AND NEED FOR HEMODIALYSIS TOMORROW. PATIENT WITH EPISODES OF DISORIENTATION AND ANXIETY. CONTINUOUSLY COUGHING WITH SMALL AMOUNT OF WHITE TENACIOUS SPUTUM. INSTRUCTED HER TO SPLINT CHEST WITH PILLOW. ABDOMINAL BINDER IN PLACE AROUND CHEST AREA. DR MORELOS ORDERED FOR TEMP HD CATHETER BY I.R. TOMORROW IF OK WITH DR NEUMANN AND TO CONSULT CRITICAL CARE. NOTIFIED DR NEUMANN HE AGREED WITH CATHETER AND CONSULT.
--- NOTE | 2019-07-04 13:56 | NUR ---
NOTIFIED DR PATEL OF CONSULT
[2019-07-04] MEDS: ONDANSETRON HCL 4 MG/2 ML VIAL IV PRN (14:01)
--- NOTE | 2019-07-04 14:13 | NUR ---
DELVIS BYRD, LAURENP FOR DR PATEL HERE TO SEE PT. UPDATED.
[2019-07-05] VITALS (19 sets, daily range): BP systolic 110–178; BP diastolic 40–89
[2019-07-05 03:41] LABS: HEMATOCRIT 30.7 % (36-48); MEAN CORPUSCULAR HGB CONC 31.6 g/dL (32.0-36.0); MEAN CORPUSCULAR VOLUME 91.9 fL (79-99); RED BLOOD CELL COUNT(AUTO) 3.34 MIL/uL (4.00-5.50); RED CELL DISTRIBUTION WIDTH 14.9 % (11.0-15.5); WHITE BLOOD COUNT (AUTO) 20.7 K/uL (4.8-10.8)
[2019-07-05 03:56] LABS: INR 1.02 (0.85-1.15)
[2019-07-05 04:10] LABS: CREATININE 5.5 mg/dL (0.5-1.5); MAGNESIUM 3.8 mg/dL (1.80-2.40); PHOSPHORUS 8.5 mg/dL (2.5-4.9); POTASSIUM 4.4 mmol/L (3.5-5.1)
[2019-07-05] MEDS: MEROPENEM 500 MG VIAL IVP SCH ×2 (05:15→20:45)
[2019-07-05] MEDS: ONDANSETRON HCL 4 MG/2 ML VIAL IV PRN (06:03)
[2019-07-05] MEDS ORDERED: LIDOCAINE HCL 1% 20 ML VIAL INJ PRN (07:30)
--- NOTE | 2019-07-05 08:56 | NUR ---
TEMP HEMODIALYSIS CATHETER INSERTION BY DR PATEL AT BEDSIDE USING STERILE TECHNIQUE TO LEFT FEMORAL. PT TOLERATED WELL. NOTIFIED DR MORELOS.
--- NOTE | 2019-07-05 09:34 | NUR ---
NOTIFIED HEMODIALYSIS NURSE, NGUYEN [phone]
[2019-07-05] MEDS: FUROSEMIDE 10 MG/ML 4ML VIAL IV SCH ×2 (10:17→20:39)
[2019-07-05] MEDS: FERROUS SULFATE 325 MG TABLET.DR PO SCH (10:17)
[2019-07-05] MEDS: ASPIRIN 81 MG EC TAB PO SCH (10:17)
[2019-07-05] MEDS: FAMOTIDINE/PF 20 MG/2 ML VIAL IV SCH (10:17)
[2019-07-05] MEDS: ACETYLCYSTEINE 600 MG CAPSULE PO SCH ×2 (10:17→20:40)
[2019-07-05] MEDS: METOPROLOL TARTRATE 25 MG TAB PO SCH ×2 (10:17→20:39)
--- NOTE | 2019-07-05 14:55 | NUR ---
RD FOLLOW UP NOTE Pt pending Hemodialysis at time of screen. Pt tolerating 75gm CC, Finely Chopped diet order with no report of GI distress, Po intake at 100%. LBM 07/05/19. Recommend add Renal Dialysis diet modification RD to continue to monitor. Please notify as additional nutrition concerns arise. Thank you. Addendum: 07/05/19 at [address] RD Amended: Links added.
--- NOTE | 2019-07-05 15:39 | NUR ---
[facility], CONFIRMED [facility] WOULD [facility] DRA[facility]- ASKED RN AND HD TECH EARLIER, REFERRAL FOR OUT PATIENT HD RECD, WILL DEFER UNTIL AM
[2019-07-05 15:40] LABS: HEMOGLOBIN A1C 6.5 % (4.0-6.0)
[2019-07-05 15:56] LABS: % IRON SATURATION 12.1 % (22-44)
[2019-07-05] MEDS ORDERED: HEPARIN SODIUM 5000UNIT/ML 1ML VIAL ONE (20:36)
[2019-07-05] MEDS: HEPARIN SODIUM 5000UNIT/ML 1ML VIAL SQ SCH (20:42)
--- NOTE | 2019-07-05 21:42 | NUR ---
PT ARRIVED TO PCCU. DOWNGRADED FROM ICU. PT IS CURRENTLY STABLE. NO DISTRESS NOTED. BP USUALLY INCREASED 150-160'S LEVEL. HD STARTED FOR FIRST TIME TODAY. PT HAS MEAL AT BEDSIDE, WILL WARM UP FOOD TO MAKE SURE PT EATS BEFORE BED.
--- NOTE | 2019-07-06 01:37 | NUR ---
PT IS SR 68. NO DISTRESS NOTED.
[2019-07-06 03:00] VITALS: BP 141/76
[2019-07-06 04:30] LABS: HEMATOCRIT 29.5 % (36-48); MEAN CORPUSCULAR HEMOGLOBIN 29.3 pg (27.0-33.0); MEAN CORPUSCULAR HGB CONC 32.2 g/dL (32.0-36.0); RED BLOOD CELL COUNT(AUTO) 3.24 MIL/uL (4.00-5.50); RED CELL DISTRIBUTION WIDTH 14.2 % (11.0-15.5); WHITE BLOOD COUNT (AUTO) 12.3 K/uL (4.8-10.8)
[2019-07-06 05:02] LABS: ALBUMIN 1.5 g/dL (3.5-5.0); ASPARTATE AMINOTRANSFERASE 45 U/L (10-37); BILIRUBIN,TOTAL 0.4 mg/dL (0.2-1.0); CARBON DIOXIDE 30 mmol/L (21-32); CHLORIDE 101 mmol/L (101-111); CREATININE 4.5 mg/dL (0.5-1.5); GLOMERULAR FILTR. RATE CALC 11 mL/min (>60); GLUCOSE,RANDOM 111 mg/dL (70-105); PHOSPHORUS 6.9 mg/dL (2.5-4.9); POTASSIUM 3.1 mmol/L (3.5-5.1); SODIUM SERUM 142 mmol/L (136-145); UREA NITROGEN, BLOOD 56 mg/dL (7-18)
[2019-07-06 05:13] LABS: ALANINE AMINOTRANSFERASE < 6 U/L (12-78)
[2019-07-06] MEDS: MEROPENEM 500 MG VIAL IVP SCH ×2 (06:02→18:46)
[2019-07-06 08:00] VITALS: BP 166/80
[2019-07-06] MEDS: FUROSEMIDE 10 MG/ML 4ML VIAL IV SCH ×2 (08:15→20:25)
[2019-07-06] MEDS: HEPARIN SODIUM 5000UNIT/ML 1ML VIAL SQ SCH ×2 (08:15→20:15)
[2019-07-06] MEDS: ASPIRIN 81 MG EC TAB PO SCH (08:41)
[2019-07-06] MEDS: FAMOTIDINE/PF 20 MG/2 ML VIAL IV SCH (08:41)
[2019-07-06] MEDS: ACETYLCYSTEINE 600 MG CAPSULE PO SCH ×2 (08:42→21:13)
[2019-07-06] MEDS: METOPROLOL TARTRATE 25 MG TAB PO SCH ×2 (08:42→20:25)
[2019-07-06] MEDS: FERROUS SULFATE 325 MG TABLET.DR PO SCH (08:42)
[2019-07-06] MEDS ORDERED: LIDOCAINE HCL-MPF 1% 2ML VIAL IJ PRN (10:00)
[2019-07-06] MEDS ORDERED: SODIUM CHLORIDE 0.9% 1000ML 1,000 ML IV PRN (10:00)
[2019-07-06] MEDS ORDERED: NITROGLYCERIN 0.4 MG SL TAB SL PRN (10:00)
[2019-07-06] MEDS ORDERED: ACETAMINOPHEN 325 MG TAB PO PRN (10:00)
[2019-07-06] MEDS ORDERED: HEPARIN SODIUM 5000UNIT/ML 1ML VIAL IJ PRN ×2 (10:00)
[2019-07-06] MEDS ORDERED: 0.9% SODIUM CHLORIDE 1000 ML IV BAG IV PRN (10:00)
[2019-07-06 11:40] VITALS: BP 148/70
--- NOTE | 2019-07-06 15:08 | NUR ---
RIGHT IJ CORDIS REMOVED ORDERED. HEMOSTASIS ACHIEVED WITHOUT COMPLICATIONS.
[2019-07-06 16:00] VITALS: BP 142/68
[2019-07-06 19:00] VITALS: BP 130/60
--- NOTE | 2019-07-06 20:10 | NUR ---
PT IS AFIB 120'S.
[2019-07-06] MEDS ORDERED: POTASSIUM CHLORIDE 20 MEQ ERTAB PO ONE (20:27)
--- NOTE | 2019-07-06 20:52 | NUR ---
SPOKE TO DR NEUMANN ABOUT PT AFIB, AND RED TINGED URINE NOTED. STATED TO START AMIODARONE DRIP, HOLD 2100 DOSE OF HEPARIN. AND UA.
[2019-07-06] MEDS ORDERED: AMIODARONE HCL 900 MG in DEXTROSE 5%-WATER 500 ML IV SCH (21:00)
[2019-07-06] MEDS ORDERED: AMIODARONE HCL 150 MG in DEXTROSE 5%-WATER 100 ML IV SCH (21:00)
--- NOTE | 2019-07-06 21:20 | NUR ---
PT CONVERTED BACK TO SR. 60'S.
[2019-07-06 23:00] VITALS: BP 143/70
[2019-07-06 23:21] LABS: APPEARANCE,URINE SL CLOUDY (CLEAR); BILIRUBIN,URINE NEGATIVE (NEGATIVE); GLUCOSE, URINE (UA) 100 mg/dL (NEGATIVE); KETONES,URINE 5 mg/dL (NEGATIVE); LEUKOCYTE ESTERASE ,URINE NEGATIVE (NEGATIVE); NITRATE,URINE NEGATIVE (NEGATIVE); OCCULT BLOOD,URINE LARGE (NEGATIVE); PH,URINE 6.5 (5.0-8.0); PROTEIN,URINE >=300 mg/dL (NEGATIVE); UROBILINOGEN,URINE 0.2 mg/dL (0.2-1.0)
[2019-07-06 23:23] LABS: COLOR,URINE PINK (YELLOW)
[2019-07-06 23:31] LABS: BACTERIA,URINE Few /HPF (None Seen); RBC,URINE >100 /HPF (0-1); SQUAMOUS EPITHELIAL CELL,UR 0-2 /HPF (0-2)
[2019-07-07 03:00] VITALS: BP 142/67
[2019-07-07 04:39] LABS: BASOPHILS % (AUTO) 0.1 % (0.0-5.0); EOSINOPHILS % (AUTO) 1.6 % (0.0-8.0); HEMATOCRIT 28.9 % (36-48); LYMPHOCYTES % (AUTO) 12.3 % (21.0-51.0); MEAN CORPUSCULAR HGB CONC 32.2 g/dL (32.0-36.0); MONOCYTES % (AUTO) 9.2 % (3.0-13.0); NEUTROPHILS % (AUTO) 76.1 % (40.0-77.0); PLATELET COUNT (AUTO) 84 K/uL (130-400); RED BLOOD CELL COUNT(AUTO) 3.21 MIL/uL (4.00-5.50); RED CELL DISTRIBUTION WIDTH 13.8 % (11.0-15.5); WHITE BLOOD COUNT (AUTO) 10.4 K/uL (4.8-10.8)
[2019-07-07 04:45] LABS: CREATININE 3.8 mg/dL (0.5-1.5); POTASSIUM 3.1 mmol/L (3.5-5.1)
[2019-07-07] MEDS: MEROPENEM 500 MG VIAL IVP SCH ×3 (05:54→19:56)
[2019-07-07] MEDS: POTASSIUM CHLORIDE 20MEQ/100ML 100 ML IV PRN (05:55)
[2019-07-07 07:00] VITALS: BP 153/81
[2019-07-07] MEDS: ACETYLCYSTEINE 600 MG CAPSULE PO SCH ×2 (10:41→19:57)
[2019-07-07] MEDS: ASPIRIN 81 MG EC TAB PO SCH (10:41)
[2019-07-07] MEDS: TRAMADOL HCL 50 MG TABLET PO PRN (10:41)
[2019-07-07] MEDS: FAMOTIDINE 20MG TAB 20 MG TAB PO SCH (10:41)
[2019-07-07] MEDS: FERROUS SULFATE 325 MG TABLET.DR PO SCH (10:41)
[2019-07-07] MEDS: FUROSEMIDE 10 MG/ML 4ML VIAL IV SCH ×2 (10:42→19:57)
[2019-07-07] MEDS: METOPROLOL TARTRATE 25 MG TAB PO SCH ×2 (10:43→19:57)
[2019-07-07] MEDS: HEPARIN SODIUM 5000UNIT/ML 1ML VIAL SQ SCH ×2 (10:45→20:12)
[2019-07-07 11:00] VITALS: BP 127/57
[2019-07-07] MEDS ORDERED: DEXTROSE 50%-WATER 50 ML DISP.SYRIN IV PRN (11:45)
[2019-07-07] MEDS ORDERED: GLUCAGON 1MG KIT 1 MG ML IM PRN (11:45)
[2019-07-07 16:00] VITALS: BP 134/68
[2019-07-07] MEDS: INSULIN HUMULIN R 100 UNIT/ML 3ML SQ SCH ×2 (16:22→20:54)
[2019-07-07 20:00] VITALS: BP 135/61
[2019-07-08] VITALS (11 sets, daily range): BP systolic 99–148; BP diastolic 56–77
[2019-07-08 04:58] LABS: BASOPHILS % (AUTO) 0.1 % (0.0-5.0); EOSINOPHILS % (AUTO) 3.1 % (0.0-8.0); HEMATOCRIT 26.8 % (36-48); LYMPHOCYTES % (AUTO) 13.3 % (21.0-51.0); MEAN CORPUSCULAR HEMOGLOBIN 29.7 pg (27.0-33.0); MEAN CORPUSCULAR HGB CONC 33.2 g/dL (32.0-36.0); MEAN CORPUSCULAR VOLUME 89.3 fL (79-99); MONOCYTES % (AUTO) 8.5 % (3.0-13.0); NEUTROPHILS % (AUTO) 73.7 % (40.0-77.0); PLATELET COUNT (AUTO) 80 K/uL (130-400); RED CELL DISTRIBUTION WIDTH 13.6 % (11.0-15.5); WHITE BLOOD COUNT (AUTO) 9.1 K/uL (4.8-10.8)
[2019-07-08 05:12] LABS: INR 1.05 (0.85-1.15); PROTHROMBIN TIME 11.3 SEC (9.6-11.6)
[2019-07-08 05:22] LABS: ALBUMIN 1.3 g/dL (3.5-5.0); BILIRUBIN,TOTAL 0.6 mg/dL (0.2-1.0); CREATININE 3.4 mg/dL (0.5-1.5); TOTAL PROTEIN, SERUM 4.6 g/dL (6.0-8.3)
[2019-07-08 06:14] LABS: POTASSIUM 2.9 mmol/L (3.5-5.1)
[2019-07-08] MEDS: INSULIN HUMULIN R 100 UNIT/ML 3ML SQ SCH ×4 (06:24→20:36)
--- NOTE | 2019-07-08 07:45 | NUR ---
AM ASSESSMENT PT LAYING IN BED, HOB ELEVATED 30 DEGREES, RESTING. A/O X 3. NO SOB. NO DISTRESS NOTED. DENIES CHEST PAIN OR DISCOMFORT. DENIES PALPITATIONS. DENIES INCISIONAL PAIN. TELE: SR. DENIES N/V AND/OR DIARRHEA. STERNAL INCISION WELL APPROX, NO DRAINAGE NOTED. RT UPPER CHEST INCISION WELL APPROX, NO DRAINAGE NOTED. RT GROIN INCISION WELL APPROX, NO DRAINAGE NOTED. STERNAL PRECAUTIONS REINFORCED. IS 750. PURPOSE & IMPORTANCE OF IS REINFORCED. ARIZA CATHETER PATENT & DRAINING. (+) EDEMA BLE. UP W/ASSISTANCE. INSTRUCTED TO CALL FOR ASSISTANCE. CALL LONNY W/IN REACH.
--- NOTE | 2019-07-08 07:55 | NUR ---
MD NOTIFICATION RE: K 2.[address] PAOLO MANRIQUEZ[address]
--- NOTE | 2019-07-08 07:59 | NUR ---
MD NOTIFICATION CALL BACK RECEIVED FROM DR PAOLO MANRIQUEZ. NOTIFIED K 2.9. ORDERS RECEIVED & ENTERED. PT TO RECEIVE 1 X DOSE OF POTASSIUM PO. PT CURRENTLY NPO FOR PERMACATH PLACEMENT LATER TODAY.
[2019-07-08] MEDS ORDERED: POTASSIUM CHLORIDE 10% ELIXIR 20 MEQ/15 ML UDCUP PO SCH (08:00)
[2019-07-08] MEDS: HEPARIN SODIUM 5000UNIT/ML 1ML VIAL SQ SCH ×2 (09:00→20:05)
--- NOTE | 2019-07-08 09:21 | NUR ---
inquired where to send hd referral- CALL TO DR. MORELOS STATES HE WILL ROUND THIS AFT AND LET CM KNOW WHICH HD CNETER TO SEND REFERRAL TO Addendum: 07/08/19 at 1248 by MAKENNA WILLS RN CM Amended: Links added.
--- NOTE | 2019-07-08 10:45 | NUR ---
STATUS PT TAKEN TO STEEL SAMPLER VIA BED FOR PERMACATH PLACEMENT. TELE JEN REMOVED.
[2019-07-08] MEDS ORDERED: LIDOCAINE HCL 1% MDV 50ML VIAL ONE (10:49)
--- NOTE | 2019-07-08 12:10 | NUR ---
STATUS PT RETURNED FROM [facility], S/P RT IJ TUNNELED CATHETER. DSG DRY & INTACT. NO BLEEDING, NO DRAINAGE NOTED. DENIES PAIN OR DISCOMFORT. PT RO RESUME DIET. PT TO HAVE HD TODAY.
[2019-07-08 13:55] LABS: CHOLESTEROL 213 mg/dL (<200); HDL CHOLESTEROL 116 mg/dL (35-85); LDL DIRECT 127 mg/dL (0-99); TRIGLYCERIDES 239 mg/dL (30-200)
--- NOTE | 2019-07-08 14:42 | NUR ---
RD FOLLOW UP Pt tolerating Heart Healthy, 75gm CC Diet order with no report of GI distress, good PO at 100%. Pt LBM 07/06/19. Altered renal labs, mild fluid retention (BLE 2+edema). Recommend add 60mL Promod QD Recommend add Renal non dialysis diet order. RD to continue to monitor. Please notify as additional nutrition concerns arise. Thank you. Addendum: 07/08/19 at [address] RD Amended: Links added.
[2019-07-08] MEDS: MEROPENEM 500 MG VIAL IVP SCH ×2 (16:54→20:25)
[2019-07-08] MEDS: ASPIRIN 81 MG EC TAB PO SCH (16:56)
[2019-07-08] MEDS: FAMOTIDINE 20MG TAB 20 MG TAB PO SCH (16:56)
[2019-07-08] MEDS: METOPROLOL TARTRATE 25 MG TAB PO SCH ×2 (16:56→20:26)
[2019-07-08] MEDS: ACETYLCYSTEINE 600 MG CAPSULE PO SCH ×2 (16:56→20:26)
[2019-07-08] MEDS: FERROUS SULFATE 325 MG TABLET.DR PO SCH (16:57)
[2019-07-08] MEDS: TRAMADOL HCL 50 MG TABLET PO PRN (17:09)
[2019-07-09] VITALS (7 sets, daily range): BP systolic 128–161; BP diastolic 59–84
[2019-07-09 03:42] LABS: BASOPHILS % (AUTO) 0.1 % (0.0-5.0); EOSINOPHILS % (AUTO) 2.9 % (0.0-8.0); HEMATOCRIT 27.6 % (36-48); LYMPHOCYTES % (AUTO) 11.6 % (21.0-51.0); MEAN CORPUSCULAR HEMOGLOBIN 29.1 pg (27.0-33.0); MEAN CORPUSCULAR HGB CONC 32.6 g/dL (32.0-36.0); MEAN CORPUSCULAR VOLUME 89.3 fL (79-99); NEUTROPHILS % (AUTO) 75.6 % (40.0-77.0); PLATELET COUNT (AUTO) 106 K/uL (130-400); RED BLOOD CELL COUNT(AUTO) 3.09 MIL/uL (4.00-5.50); RED CELL DISTRIBUTION WIDTH 13.7 % (11.0-15.5); WHITE BLOOD COUNT (AUTO) 10.6 K/uL (4.8-10.8)
[2019-07-09 04:03] LABS: ALBUMIN 1.4 g/dL (3.5-5.0); BILIRUBIN,TOTAL 0.7 mg/dL (0.2-1.0); CREATININE 2.3 mg/dL (0.5-1.5); POTASSIUM 3.6 mmol/L (3.5-5.1); TOTAL PROTEIN, SERUM 4.8 g/dL (6.0-8.3)
[2019-07-09] MEDS ORDERED: CEFAZOLIN SODIUM 1 GM VIAL IVP SCH (06:00)
[2019-07-09] MEDS: INSULIN HUMULIN R 100 UNIT/ML 3ML SQ SCH ×4 (06:13→22:17)
[2019-07-09] MEDS: FERROUS SULFATE 325 MG TABLET.DR PO SCH (08:33)
[2019-07-09] MEDS: ASPIRIN 81 MG EC TAB PO SCH (08:33)
[2019-07-09] MEDS: METOPROLOL TARTRATE 25 MG TAB PO SCH ×2 (08:33→21:04)
[2019-07-09] MEDS: MEROPENEM 500 MG VIAL IVP SCH ×2 (08:33→21:04)
[2019-07-09] MEDS: FAMOTIDINE 20MG TAB 20 MG TAB PO SCH (08:33)
[2019-07-09] MEDS: TRAMADOL HCL 50 MG TABLET PO PRN (08:38)
[2019-07-09] MEDS: ACETYLCYSTEINE 600 MG CAPSULE PO SCH ×2 (08:38→21:04)
[2019-07-09] MEDS: HEPARIN SODIUM 5000UNIT/ML 1ML VIAL SQ SCH ×2 (09:05→21:04)
[2019-07-09 09:10] LABS: HEPATITIS Bs ANTIGEN SCREEN P Negative (Negative)
--- NOTE | 2019-07-09 22:00 | NUR ---
Reji Catheter removed on left femoral. Two Nurses ( LEE & LO )at beside while removing catheter. Held pressure for 10-15 mins. Tegaderm and gauze applied to area. No bleeding noted. Patient call light within reach and nursing instructions given to patient regarding post catheter care.
[2019-07-09] MEDS: LACTULOSE 20 GM/30 ML UDCUP PO PRN (23:45)
[2019-07-09] MEDS: ONDANSETRON HCL 4 MG/2 ML VIAL IV PRN (23:45)
[2019-07-10 04:21] VITALS: BP 120/64
[2019-07-10 05:17] LABS: BASOPHILS % (AUTO) 0.2 % (0.0-5.0); EOSINOPHILS % (AUTO) 4.6 % (0.0-8.0); HEMATOCRIT 26.5 % (36-48); LYMPHOCYTES % (AUTO) 13.1 % (21.0-51.0); MEAN CORPUSCULAR HEMOGLOBIN 29.2 pg (27.0-33.0); MEAN CORPUSCULAR HGB CONC 32.5 g/dL (32.0-36.0); MEAN CORPUSCULAR VOLUME 89.8 fL (79-99); MONOCYTES % (AUTO) 7.9 % (3.0-13.0); NEUTROPHILS % (AUTO) 71.9 % (40.0-77.0); PLATELET COUNT (AUTO) 126 K/uL (130-400); RED BLOOD CELL COUNT(AUTO) 2.95 MIL/uL (4.00-5.50); RED CELL DISTRIBUTION WIDTH 14.1 % (11.0-15.5); WHITE BLOOD COUNT (AUTO) 11.4 K/uL (4.8-10.8)
[2019-07-10 05:59] LABS: ALBUMIN 1.5 g/dL (3.5-5.0); BILIRUBIN,TOTAL 0.6 mg/dL (0.2-1.0); CREATININE 2.7 mg/dL (0.5-1.5); POTASSIUM 3.3 mmol/L (3.5-5.1); TOTAL PROTEIN, SERUM 4.9 g/dL (6.0-8.3)
[2019-07-10] MEDS: INSULIN HUMULIN R 100 UNIT/ML 3ML SQ SCH ×3 (06:01→15:41)
[2019-07-10] MEDS ORDERED: POTASSIUM CHLORIDE 20 MEQ ERTAB PO ONE (06:38)
[2019-07-10] MEDS ORDERED: POTASSIUM CHLORIDE 20 MEQ ERTAB PO PRN (06:45)
[2019-07-10 07:30] VITALS: BP 149/75
[2019-07-10] MEDS: MEROPENEM 500 MG VIAL IVP SCH (09:00)
[2019-07-10] MEDS: ACETYLCYSTEINE 600 MG CAPSULE PO SCH (09:00)
[2019-07-10] MEDS: HEPARIN SODIUM 5000UNIT/ML 1ML VIAL SQ SCH (09:00)
[2019-07-10] MEDS: ASPIRIN 81 MG EC TAB PO SCH (09:00)
[2019-07-10] MEDS: METOPROLOL TARTRATE 25 MG TAB PO SCH (09:00)
[2019-07-10] MEDS: FERROUS SULFATE 325 MG TABLET.DR PO SCH (09:00)
[2019-07-10] MEDS: FAMOTIDINE 20MG TAB 20 MG TAB PO SCH (09:00)
[2019-07-10 11:00] VITALS: BP 152/66
[2019-07-10 16:00] VITALS: BP 132/65
[2019-07-10] MEDS ORDERED: EPOETIN ALFA 10,000 UNIT/ML VIAL SQ SCH (17:00)
--- NOTE | 2019-07-10 17:01 | NUR ---
TTS AT [facility]- 4TH SHIFT. TO START TOMORROW, FIRST APPT, 3 PM PRIMARY RN UPDATED, LEFT NOTE IN CHART Addendum: 07/11/19 at 0803 by MAKENNA WILLS RN CM Amended: Links added.
[2019-07-10] MEDS ORDERED: AEC81 PO (18:34)
[2019-07-10] MEDS ORDERED: ATOR10 PO (18:34)
[2019-07-10] MEDS ORDERED: CEFD300C3 PO (18:34)
[2019-07-10] MEDS ORDERED: METO25TA6 PO (18:34)
--- NOTE | 2019-07-10 19:52 | NUR ---
Patient discharge. Removed IV, telepak, abdominal stitches.and provided discharge instructions to both patient and verbal phone call to daughter. Patient and daughter verbalize instructions, renal dialysis appointment and doctor follow ups. Patient sign discharge instruction..
--- NOTE | 2019-07-10 19:54 | NUR ---
patient stable, good, and alert upon discharge. Transported to [facility] via wheel chair by PCP.
== END 2019-07-10 20:05 | disposition home or self-care (01) | DRG 216 ==
LOC: EDH 12:36 → 4CH 13:08 → PAH.CVR 07-02 11:07 → DAHIP 07-03 15:15 → 4DH 07-05 21:43
PROVIDERS: ADMIT Internal Medicine; ATTEND Internal Medicine
PROC: 4A023N7 Measurement of Cardiac Sampling and Pressure, Left Heart, Percutaneous Approach (ICD-10-PCS; principal; 2019-07-01)
PROC: X2RF032 Replacement of Aortic Valve using Zooplastic Tissue, Rapid Deployment Technique, Open Approach, New Technology Group 2 (ICD-10-PCS; 2019-07-01)
PROC: B2111ZZ Fluoroscopy of Multiple Coronary Arteries using Low Osmolar Contrast (ICD-10-PCS; 2019-07-01)
PROC: 5A1D70Z Performance of Urinary Filtration, Intermittent, Less than 6 Hours Per Day (ICD-10-PCS; 2019-07-05)
PROC: 0JH63XZ Insertion of Tunneled Vascular Access Device into Chest Subcutaneous Tissue and Fascia, Percutaneous Approach (ICD-10-PCS; 2019-07-05)
PROC: B548ZZA Ultrasonography of Superior Vena Cava, Guidance (ICD-10-PCS; 2019-07-05)
PROC: 02HV33Z Insertion of Infusion Device into Superior Vena Cava, Percutaneous Approach (ICD-10-PCS; 2019-07-05)
PROC: B5181ZA Fluoroscopy of Superior Vena Cava using Low Osmolar Contrast, Guidance (ICD-10-PCS; 2019-07-05)
PROC: 5A1D70Z Performance of Urinary Filtration, Intermittent, Less than 6 Hours Per Day (ICD-10-PCS; 2019-07-06)
PROC: 5A1D70Z Performance of Urinary Filtration, Intermittent, Less than 6 Hours Per Day (ICD-10-PCS; 2019-07-10)
DX: I08.0 Rheumatic disorders of both mitral and aortic valves (principal); I50.43 Acute on chronic combined systolic (congestive) and diastolic (congestive) heart failure; J96.01 Acute respiratory failure with hypoxia; N18.6 End stage renal disease; N17.9 Acute kidney failure, unspecified; E87.0 Hyperosmolality and hypernatremia; E87.2 Acidosis; I13.2 Hypertensive heart and chronic kidney disease with heart failure and with stage 5 chronic kidney disease, or end stage renal disease; I42.9 Cardiomyopathy, unspecified; N30.00 Acute cystitis without hematuria; I44.2 Atrioventricular block, complete; Z16.24 Resistance to multiple antibiotics; B96.20 Unspecified Escherichia coli [E. coli] as the cause of diseases classified elsewhere; E11.22 Type 2 diabetes mellitus with diabetic chronic kidney disease; D69.6 Thrombocytopenia, unspecified; E66.01 Morbid (severe) obesity due to excess calories; E78.00 Pure hypercholesterolemia, unspecified; E78.1 Pure hyperglyceridemia; E78.5 Hyperlipidemia, unspecified; E87.5 Hyperkalemia; F17.200 Nicotine dependence, unspecified, uncomplicated; I25.10 Atherosclerotic heart disease of native coronary artery without angina pectoris; E11.21 Type 2 diabetes mellitus with diabetic nephropathy; D64.9 Anemia, unspecified; Z79.82 Long term (current) use of aspirin; Z79.899 Other long term (current) drug therapy; Z80.0 Family history of malignant neoplasm of digestive organs; Z82.49 Family history of ischemic heart disease and other diseases of the circulatory system; Z86.19 Personal history of other infectious and parasitic diseases; Z90.710 Acquired absence of both cervix and uterus; Z91.041 Radiographic dye allergy status; Z99.2 Dependence on renal dialysis
CPT/HCPCS: 36415; 36558; 71045; 71046; 77001; 80048; 80053; 80061; 80076; 81001; 82040; 82330; 82435; 82728; 82803; 82947; 82948; 83036; 83540; 83550; 83605; 83735; 83880; 84100; 84132; 84295; 84443; 84550; 85018; 85025; 85027; 85049; 85347; 85610; 85730; 86701; 86704; 86706; 86850; 86900; 86901; 86922; 87077; 87088; 87186; 87340; 87390; 87520; 90935; 93005; 93306; 93313; 93318; 93356; 93454; 93880; 94002; 94003; 94010; 94150; 97039; A4357; A7048; C1750; C1752; C1760; C1894; G0378; J0171; J0282; J0360; J0610; J0690; J0885; J1200; J1644; J1650; J1815; J1940; J2001; J2150; J2185; J2250; J2370; J2405; J2704; J2720; J2795; J2930; J3010; J3475; J3480; J3490; J7030; J7040; J7060; J7120; J7608; P9016; P9034; P9045; P9047; Q9967

== ENCOUNTER → 2019-10-18 | Outpatient (CLI) | payer MEDICARE ==
[~2019-10-18] MED LIST changes: +AEC81 PO; +ATOR10 PO; +CEFD300C3 PO; +FERR325T22 PO; -FLUC150T PO; -HYDR25TA PO; -LOSA50TA64 PO; +METO25TA6 PO; -METR500T PO; -NAPR-1023 PO; -SITA100T12 PO
== END | disposition home or self-care (01) ==
LOC: SHCH 14:06
PROVIDERS: ATTEND Internal Medicine Cardiovascular Disease
DX: I10 Essential (primary) hypertension (principal)
CPT/HCPCS: 93306; 93356

== ENCOUNTER → 2019-11-08 | Outpatient (CLI) | payer MEDICARE ==
[~2019-11-08] MED LIST changes: +DiphenhydrAMINE HCL 50 MG/ML VIAL ONE; +IOHEXOL-350 75 ML VIAL IV ONE; +METHYLPREDNISOLONE SOD SUCC 125MG/2ML VIAL ONE
[2019-11-08 09:25] LABS: CREATININE 3.4 mg/dL (0.5-1.5)
== END | disposition home or self-care (01) ==
LOC: RAH 08:25
PROVIDERS: ATTEND Internal Medicine Cardiovascular Disease
DX: R07.89 Other chest pain (principal); R06.00 Dyspnea, unspecified; I34.0 Nonrheumatic mitral (valve) insufficiency; I10 Essential (primary) hypertension
CPT/HCPCS: J1200; J2930; 36415; 71275; 82565; 84520; Q9967

== ENCOUNTER → 2020-04-10 | Outpatient (CLI) | payer MEDICARE ==
[~2020-04-10] MED LIST changes: +CEFAZOLIN SODIUM 1 GM VIAL IVP SCH; -DiphenhydrAMINE HCL 50 MG/ML VIAL ONE; -IOHEXOL-350 75 ML VIAL IV ONE; -METHYLPREDNISOLONE SOD SUCC 125MG/2ML VIAL ONE
[2020-04-10 15:02] LABS: BASOPHILS % (AUTO) 0.2 % (0.0-5.0); EOSINOPHILS % (AUTO) 2.8 % (0.0-8.0); HEMATOCRIT 37.9 % (36-48); LYMPHOCYTES % (AUTO) 16.9 % (21.0-51.0); MEAN CORPUSCULAR HEMOGLOBIN 29.9 pg (27.0-33.0); MEAN CORPUSCULAR HGB CONC 32.7 g/dL (32.0-36.0); MEAN CORPUSCULAR VOLUME 91.3 fL (79-99); MONOCYTES % (AUTO) 6.7 % (3.0-13.0); NEUTROPHILS % (AUTO) 73.1 % (40.0-77.0); PLATELET COUNT (AUTO) 212 K/uL (130-400); RED BLOOD CELL COUNT(AUTO) 4.15 MIL/uL (4.00-5.50); RED CELL DISTRIBUTION WIDTH 14.7 % (11.0-15.5); WHITE BLOOD COUNT (AUTO) 8.8 K/uL (4.8-10.8)
[2020-04-10 15:15] LABS: HEMOGLOBIN A1C 6.6 % (4.0-6.0)
[2020-04-10 15:25] LABS: INR 1.02 (0.85-1.15); PROTHROMBIN TIME 11.1 SEC (9.6-11.6)
[2020-04-10 15:26] LABS: PARTIAL THROMBOPLASTIN TIME 25.6 SEC (26.3-35.5)
[2020-04-10 15:29] LABS: ALBUMIN 3.3 g/dL (3.5-5.0); BILIRUBIN,TOTAL 0.5 mg/dL (0.2-1.0); CREATININE 4.9 mg/dL (0.5-1.5); POTASSIUM 4.8 mmol/L (3.5-5.1); TOTAL PROTEIN, SERUM 7.9 g/dL (6.0-8.3)
== END | disposition home or self-care (01) ==
LOC: DAH 10:00 → EDSTATUS 14:00
PROVIDERS: ATTEND Thoracic Surgery (Cardiothoracic Vascular Surgery)
DX: I65.23 Occlusion and stenosis of bilateral carotid arteries (principal); Z20.822 Contact with and (suspected) exposure to COVID-19; I51.7 Cardiomegaly; M47.814 Spondylosis without myelopathy or radiculopathy, thoracic region; I34.0 Nonrheumatic mitral (valve) insufficiency; I44.7 Left bundle-branch block, unspecified; I44.0 Atrioventricular block, first degree; I48.92 Unspecified atrial flutter; R94.31 Abnormal electrocardiogram [ECG] [EKG]
CPT/HCPCS: 36415; 71046; 80053; 80061; 83036; 85025; 85610; 85730; 86850; 86900; 86901; 93005; 93880; 94010; A6260; U0003

== ENCOUNTER 2022-01-31 09:29 | Emergency (ER) | payer MEDICARE ==
[~2022-01-31] VITALS: Ht 160 cm; Wt 102.5 kg
[~2022-01-31 09:29] MED LIST changes: -CEFAZOLIN SODIUM 1 GM VIAL IVP SCH
[2022-01-31 09:35] VITALS: BP 133/69
[2022-01-31] MEDS ORDERED: ACETAMINOPHEN 500 MG TABLET PO STA (10:45)
== END 2022-01-31 10:52 | disposition home or self-care (01) ==
LOC: EDH 09:29
DX: D17.39 Benign lipomatous neoplasm of skin and subcutaneous tissue of other sites (principal); I12.9 Hypertensive chronic kidney disease with stage 1 through stage 4 chronic kidney disease, or unspecified chronic kidney disease; E11.22 Type 2 diabetes mellitus with diabetic chronic kidney disease; N18.9 Chronic kidney disease, unspecified; E78.00 Pure hypercholesterolemia, unspecified; Z98.890 Other specified postprocedural states; Z88.5 Allergy status to narcotic agent; Z88.8 Allergy status to other drugs, medicaments and biological substances; Z88.2 Allergy status to sulfonamides; Z95.1 Presence of aortocoronary bypass graft
CPT/HCPCS: 76857

== ENCOUNTER 2022-02-14 14:00 | Emergency (ER) | payer MEDICARE ==
[~2022-02-14] VITALS: Ht 160 cm; Wt 97.5 kg
[2022-02-14 15:08] VITALS: BP 109/70
[2022-02-14] MEDS ORDERED: ACET-2247 PO (16:17)
== END 2022-02-14 16:34 | disposition home or self-care (01) ==
LOC: EDH 14:00
DX: M62.838 Other muscle spasm (principal); I13.10 Hypertensive heart and chronic kidney disease without heart failure, with stage 1 through stage 4 chronic kidney disease, or unspecified chronic kidney disease; E11.22 Type 2 diabetes mellitus with diabetic chronic kidney disease; N18.9 Chronic kidney disease, unspecified; E78.00 Pure hypercholesterolemia, unspecified; Z90.49 Acquired absence of other specified parts of digestive tract; Z95.1 Presence of aortocoronary bypass graft; Z98.890 Other specified postprocedural states; Z79.899 Other long term (current) drug therapy; Z88.5 Allergy status to narcotic agent; Z91.040 Latex allergy status; Z88.1 Allergy status to other antibiotic agents; Z88.2 Allergy status to sulfonamides
CPT/HCPCS: 70450; 72125

== ENCOUNTER 2022-03-09 13:46 | Emergency (ER) | payer MEDICARE ==
[~2022-03-09] VITALS: Ht 160 cm; Wt 92.5 kg
[~2022-03-09 13:46] MED LIST changes: +ACET-2247 PO
[2022-03-09 14:37] LABS: HEMATOCRIT 42.9 % (36-48); MEAN CORPUSCULAR HEMOGLOBIN 30.7 pg (27.0-33.0); MEAN CORPUSCULAR HGB CONC 31.9 g/dL (32.0-36.0); MEAN CORPUSCULAR VOLUME 96.2 fL (79-99); NUCLEATED RED BLOOD CELLS 0.3 % (0.0-0.19); RED BLOOD CELL COUNT(AUTO) 4.46 MIL/uL (4.00-5.50); RED CELL DISTRIBUTION WIDTH 16.9 % (11.0-15.5)
[2022-03-09 14:51] LABS: ALBUMIN 3.5 g/dL (3.5-5.0); POTASSIUM 4.4 mmol/L (3.5-5.1); TOTAL PROTEIN, SERUM 7.7 g/dL (6.0-8.3)
[2022-03-09 14:53] LABS: CREATININE 8.5 mg/dL (0.5-1.5)
[2022-03-09 20:33] VITALS: BP 118/68
== END 2022-03-09 20:34 | disposition home or self-care (01) ==
LOC: EDH 13:46
DX: K43.9 Ventral hernia without obstruction or gangrene (principal); E11.22 Type 2 diabetes mellitus with diabetic chronic kidney disease; I12.0 Hypertensive chronic kidney disease with stage 5 chronic kidney disease or end stage renal disease; N18.6 End stage renal disease; E66.9 Obesity, unspecified; Z68.36 Body mass index [BMI] 36.0-36.9, adult; E78.00 Pure hypercholesterolemia, unspecified; Z99.2 Dependence on renal dialysis; Z88.5 Allergy status to narcotic agent; Z88.2 Allergy status to sulfonamides; Z88.1 Allergy status to other antibiotic agents; Z88.8 Allergy status to other drugs, medicaments and biological substances; Z79.82 Long term (current) use of aspirin; Z79.4 Long term (current) use of insulin; Z79.899 Other long term (current) drug therapy; Z90.89 Acquired absence of other organs
CPT/HCPCS: 36415; 76856; 80053; 85027

== ENCOUNTER 2022-03-23 09:51 | Inpatient (IN) | payer MEDICARE ==
[~2022-03-23] VITALS: Ht 160 cm; Wt 108.6 kg
[2022-03-23] MEDS ORDERED: MORPHINE 4 MG SYG IVP ONE (13:00)
[2022-03-23] MEDS ORDERED: ONDANSETRON 4MG INJ IV ONE (13:00)
[2022-03-23] MEDS ORDERED: LIDOCAINE 1%-EPI 1:100,000 20 ML VIAL IJ SCH (13:00)
[2022-03-23 13:10] LABS: BASOPHILS % (AUTO) 0.3 % (0.0-5.0); EOSINOPHILS % (AUTO) 1.9 % (0.0-8.0); HEMATOCRIT 39.2 % (36-48); LYMPHOCYTES % (AUTO) 8.6 % (21.0-51.0); MEAN CORPUSCULAR HEMOGLOBIN 31.1 pg (27.0-33.0); MEAN CORPUSCULAR HGB CONC 32.9 g/dL (32.0-36.0); MEAN CORPUSCULAR VOLUME 94.5 fL (79-99); MONOCYTES % (AUTO) 9.6 % (3.0-13.0); NEUTROPHILS % (AUTO) 79.2 % (40.0-77.0); PLATELET COUNT (AUTO) 132 K/uL (130-400); RED BLOOD CELL COUNT(AUTO) 4.15 MIL/uL (4.00-5.50); RED CELL DISTRIBUTION WIDTH 16.1 % (11.0-15.5); WHITE BLOOD COUNT (AUTO) 11.5 K/uL (4.8-10.8)
[2022-03-23 13:32] LABS: CREATININE 7.8 mg/dL (0.5-1.5); POTASSIUM 4.6 mmol/L (3.5-5.1); TOTAL PROTEIN, SERUM 6.8 g/dL (6.0-8.3)
[2022-03-23] MEDS ORDERED: ZOSYN 3.375GM +NS 50ML IV SCH ×2 (14:00→15:00)
[2022-03-23] MEDS ORDERED: LACTULOSE 20 GM/30 ML UDCUP PO PRN (15:00)
[2022-03-23] MEDS ORDERED: NITROGLYCERIN 0.4 MG SL TAB SL PRN (15:00)
[2022-03-23] MEDS ORDERED: GUAIFENESIN-DM 200/20 MG 10 ML PO PRN (15:00)
[2022-03-23] MEDS ORDERED: ALBUTEROL 0.083% 2.5 MG/3 ML INH IH PRN (15:00)
[2022-03-23] MEDS ORDERED: ONDANSETRON 4MG INJ IV PRN (15:00)
[2022-03-23] MEDS ORDERED: HYDROMORPHONE 0.5 MG SYG (0.5MG/0.5ML) IM PRN (15:00)
[2022-03-23] MEDS ORDERED: ZOLPIDEM TARTRATE 5 MG TAB PO PRN (15:00)
[2022-03-23] MEDS ORDERED: ASPI-1197 PO (16:23)
[2022-03-23] MEDS ORDERED: METO-408 PO (17:52)
[2022-03-23] MEDS ORDERED: SITA50TA PO (17:52)
[2022-03-23] MEDS ORDERED: GLUCAGON 1MG KIT 1 MG ML IM PRN (18:00)
[2022-03-23] MEDS: ZOSYN 3.375GM +NS 50ML IV SCH (20:04)
[2022-03-23] MEDS: HEPARIN 5,000 UNIT VIAL SQ SCH (20:05)
[2022-03-23] MEDS: INSULIN HUMULIN R 100 UNIT/ML 3ML SQ SCH (21:00)
[2022-03-23] MEDS: FAMOTIDINE 20MG TAB PO SCH (21:00)
[2022-03-23 22:35] VITALS: BP 133/79
[2022-03-24] VITALS (45 sets, daily range): BP systolic 79–133; BP diastolic 40–90
[2022-03-24] MEDS: DIPHENHYDRAMINE HCL 25 MG CAPSULE PO PRN ×2 (03:46→21:07)
[2022-03-24 05:24] LABS: BASOPHILS % (AUTO) 0.5 % (0.0-5.0); EOSINOPHILS % (AUTO) 2.6 % (0.0-8.0); HEMATOCRIT 40.7 % (36-48); LYMPHOCYTES % (AUTO) 11.4 % (21.0-51.0); MEAN CORPUSCULAR HEMOGLOBIN 31.1 pg (27.0-33.0); MEAN CORPUSCULAR HGB CONC 32.2 g/dL (32.0-36.0); MEAN CORPUSCULAR VOLUME 96.7 fL (79-99); MONOCYTES % (AUTO) 9.3 % (3.0-13.0); NEUTROPHILS % (AUTO) 75.6 % (40.0-77.0); PLATELET COUNT (AUTO) 142 K/uL (130-400); RED BLOOD CELL COUNT(AUTO) 4.21 MIL/uL (4.00-5.50); RED CELL DISTRIBUTION WIDTH 16.2 % (11.0-15.5); WHITE BLOOD COUNT (AUTO) 10.7 K/uL (4.8-10.8)
[2022-03-24] MEDS: DEXTROSE 50%-WATER 50 ML DISP.SYRIN IV PRN ×2 (05:28→10:28)
[2022-03-24] MEDS: INSULIN HUMULIN R 100 UNIT/ML 3ML SQ SCH ×4 (05:29→21:00)
[2022-03-24 05:56] LABS: ALBUMIN 3.2 g/dL (3.5-5.0); MAGNESIUM 2.8 mg/dL (1.80-2.40); PHOSPHORUS 10.1 mg/dL (2.5-4.9); POTASSIUM 4.4 mmol/L (3.5-5.1); TOTAL PROTEIN, SERUM 7.2 g/dL (6.0-8.3)
[2022-03-24 06:03] LABS: CREATININE 8.5 mg/dL (0.5-1.5)
[2022-03-24] MEDS ORDERED: BUPIVACAINE/PF 0.5% 30ML VIAL ONE (08:41)
[2022-03-24] MEDS: HEPARIN 5,000 UNIT VIAL SQ SCH ×3 (09:00→21:04)
[2022-03-24] MEDS: FAMOTIDINE 20MG TAB PO SCH ×2 (09:00→21:03)
[2022-03-24] MEDS: METOPROLOL SUCCINATE 25 MG TAB.SR.24H PO SCH (09:00)
[2022-03-24] MEDS: ASPIRIN 81MG CHEW TAB PO SCH (09:00)
[2022-03-24] MEDS: ZOSYN 3.375GM +NS 50ML IV SCH ×2 (10:36→21:59)
[2022-03-24] MEDS ORDERED: SUCCINYLCHOLINE 200MG/10ML SYR ONE (10:41)
[2022-03-24] MEDS ORDERED: LIDOCAINE PF 100MG/5ML (2%) SYRINGE 5ML ONE ×2 (10:41→10:44)
[2022-03-24] MEDS ORDERED: ONDANSETRON 4MG INJ ONE (10:42)
[2022-03-24] MEDS ORDERED: PROPOFOL 10 MG/ML 20ML VIAL IV ONE (10:42)
[2022-03-24] MEDS ORDERED: FENTANYL CITRATE PF 50 MCG/1 ML 2ML VIAL ONE (10:42)
[2022-03-24] MEDS ORDERED: EPHEDRINE SULFATE 50 MG/ML AMPULE ONE (11:21)
[2022-03-24] MEDS ORDERED: IPRATROPIUM/ALBUTEROL SULFATE 3 ML SOLUTION IH ONE (12:05)
[2022-03-24] MEDS ORDERED: IPRATROPIUM 0.5 MG/2.5 ML INH IH SCH (12:30)
[2022-03-24] MEDS ORDERED: ALBUTEROL 0.083% 2.5 MG/3 ML INH IH SCH (12:30)
[2022-03-24] MEDS ORDERED: TRAMADOL HCL 50 MG TABLET PO PRN (15:30)
[2022-03-24] MEDS ORDERED: RENAL DOSE IV PRN (16:00)
[2022-03-24] MEDS ORDERED: 0.9% NACL 250ML IV SCH (16:00)
[2022-03-24] MEDS ORDERED: VANCOMYCIN 1G VIAL IVPB SCH (16:00)
[2022-03-24] MEDS ORDERED: VANCOMYCIN PROTOCOL PER PHARMACY IV SCH (16:00)
[2022-03-24] MEDS ORDERED: VANCOMYCIN 2GM/500 ML BAG 500 ML IV ONE (16:30)
[2022-03-24] MEDS: IPRATROPIUM 0.5 MG/2.5 ML INH IH SCH (19:43)
[2022-03-24] MEDS: ALBUTEROL 0.083% 2.5 MG/3 ML INH IH SCH (19:43)
[2022-03-24] MEDS: NYSTATIN 15 GM POWDER TP SCH (21:04)
[2022-03-24] MEDS: HYDROCODONE/ACETAMINOPHEN 5/325 MG TAB PO PRN (21:07)
[2022-03-24 22:21] LABS: HEPATITIS B SURFACE ANTIGEN Non-Reactive (Nonreactive)
[2022-03-25] VITALS (18 sets, daily range): BP systolic 88–160; BP diastolic 45–96
[2022-03-25] MEDS: IPRATROPIUM 0.5 MG/2.5 ML INH IH SCH ×4 (00:20→19:02)
[2022-03-25] MEDS: ALBUTEROL 0.083% 2.5 MG/3 ML INH IH SCH ×4 (00:20→19:02)
[2022-03-25] MEDS: DiphenhydrAMINE HCL 50 MG/ML VIAL IV PRN ×2 (02:38→10:22)
[2022-03-25] MEDS: HEPARIN 5,000 UNIT VIAL SQ SCH ×2 (05:52→15:22)
[2022-03-25] MEDS: INSULIN HUMULIN R 100 UNIT/ML 3ML SQ SCH ×4 (05:52→22:29)
[2022-03-25] MEDS: HYDROCODONE/ACETAMINOPHEN 5/325 MG TAB PO PRN (05:54)
[2022-03-25 06:41] LABS: BASOPHILS % (AUTO) 0.7 % (0.0-5.0); HEMATOCRIT 37.7 % (36-48); LYMPHOCYTES % (AUTO) 9.2 % (21.0-51.0); MEAN CORPUSCULAR HEMOGLOBIN 30.6 pg (27.0-33.0); MEAN CORPUSCULAR HGB CONC 31.8 g/dL (32.0-36.0); MEAN CORPUSCULAR VOLUME 96.2 fL (79-99); MONOCYTES % (AUTO) 10.8 % (3.0-13.0); NEUTROPHILS % (AUTO) 76.9 % (40.0-77.0); PLATELET COUNT (AUTO) 116 K/uL (130-400); RED BLOOD CELL COUNT(AUTO) 3.92 MIL/uL (4.00-5.50); RED CELL DISTRIBUTION WIDTH 16.5 % (11.0-15.5); WHITE BLOOD COUNT (AUTO) 7.7 K/uL (4.8-10.8)
[2022-03-25 07:05] LABS: CREATININE 6.9 mg/dL (0.5-1.5); POTASSIUM 4.4 mmol/L (3.5-5.1)
[2022-03-25] MEDS ORDERED: MIDODRINE HCL 5 MG TABLET ONE (10:34)
[2022-03-25] MEDS: MEROPENEM 1 GM VIAL IVP SCH ×3 (11:00→22:57)
[2022-03-25] MEDS ORDERED: DiphenhydrAMINE HCL 50 MG/ML VIAL IM SCH (11:00)
[2022-03-25] MEDS ORDERED: RENAL DOSE IV PRN (11:00)
[2022-03-25] MEDS ORDERED: SOLU-MEDROL 125MG VIAL IVP SCH (11:00)
[2022-03-25] MEDS ORDERED: SOLU-MEDROL 125MG VIAL ONE (11:06)
[2022-03-25] MEDS: MIDODRINE HCL 5 MG TABLET PO SCH (11:57)
[2022-03-25] MEDS ORDERED: ALPRAZOLAM 0.25 MG TABLET PO ONE (13:00)
[2022-03-25] MEDS: FAMOTIDINE 20MG TAB PO SCH ×2 (13:17→22:35)
[2022-03-25] MEDS: ASPIRIN 81MG CHEW TAB PO SCH (13:17)
[2022-03-25] MEDS: NYSTATIN 15 GM POWDER TP SCH ×2 (13:19→22:35)
[2022-03-25] MEDS: METOPROLOL SUCCINATE 25 MG TAB.SR.24H PO SCH (15:26)
[2022-03-25 18:45] LABS: INR 1.5 (0.85-1.15)
[2022-03-25] MEDS ORDERED: ASPIRIN 325MG TAB PO ONE (22:00)
[2022-03-25] MEDS ORDERED: NITROGLYCERIN 0.4 MG SL TAB SL PRN (22:00)
[2022-03-25] MEDS: ENOXAPARIN SODIUM 100 MG/1 ML SQ SCH (22:34)
[2022-03-25] MEDS: SODIUM HYPOCHLORITE 0.25% [HALF STRENGTH] 473 ML TOPICAL SOLN TP SCH (22:56)
[2022-03-26] VITALS: BP 124/62
[2022-03-26] MEDS: IPRATROPIUM 0.5 MG/2.5 ML INH IH SCH ×4 (00:15→19:13)
[2022-03-26] MEDS: ALBUTEROL 0.083% 2.5 MG/3 ML INH IH SCH ×4 (00:15→19:13)
[2022-03-26 04:00] VITALS: BP 111/61
[2022-03-26] MEDS ORDERED: ALPRAZOLAM 0.25 MG TABLET PO SCH (06:30)
[2022-03-26] MEDS ORDERED: ALPRAZOLAM 0.25 MG TABLET ONE (06:31)
[2022-03-26] MEDS: INSULIN HUMULIN R 100 UNIT/ML 3ML SQ SCH ×4 (07:26→20:31)
[2022-03-26 08:00] VITALS: BP 112/62
[2022-03-26 08:35] LABS: HEMATOCRIT 41.3 % (36-48); MEAN CORPUSCULAR HEMOGLOBIN 31.2 pg (27.0-33.0); MEAN CORPUSCULAR HGB CONC 31.5 g/dL (32.0-36.0); PLATELET COUNT (AUTO) 143 K/uL (130-400); RED BLOOD CELL COUNT(AUTO) 4.17 MIL/uL (4.00-5.50); RED CELL DISTRIBUTION WIDTH 16.7 % (11.0-15.5); WHITE BLOOD COUNT (AUTO) 6.6 K/uL (4.8-10.8)
[2022-03-26 08:49] LABS: CREATININE 6.5 mg/dL (0.5-1.5); POTASSIUM 4.7 mmol/L (3.5-5.1)
[2022-03-26] MEDS: ASPIRIN 81MG CHEW TAB PO SCH (09:00)
[2022-03-26 09:35] LABS: LYMPHOCYTES % (MANUAL) 6 % (22-44); MAN.DIFF COMMENT-IMPRESSION MANUAL DIFFERENTIAL; PLATELET MORPHOLOGY COMMENT ADEQUATE; SEGMENTED NEUTROPHILS % 94 % (40-70)
[2022-03-26] MEDS: FAMOTIDINE 20MG TAB PO SCH (10:14)
[2022-03-26] MEDS: METOPROLOL SUCCINATE 25 MG TAB.SR.24H PO SCH (10:14)
[2022-03-26] MEDS: ASPIRIN 325MG TAB PO SCH (10:14)
[2022-03-26] MEDS: NYSTATIN 15 GM POWDER TP SCH ×2 (10:17→21:18)
[2022-03-26] MEDS: SODIUM HYPOCHLORITE 0.25% [HALF STRENGTH] 473 ML TOPICAL SOLN TP SCH ×2 (10:18→21:18)
[2022-03-26 11:56] VITALS: BP 93/64
[2022-03-26] MEDS ORDERED: LEVOFLOXACIN 500 MG TABLET PO SCH (12:30)
[2022-03-26] MEDS: ZYVOX 600 MG TAB PO SCH ×2 (13:05→20:27)
[2022-03-26] MEDS ORDERED: VANCOMYCIN 500MG+NS 100ML 100 ML IV SCH ×2 (14:00→18:00)
[2022-03-26] MEDS: DIPHENHYDRAMINE HCL 25 MG CAPSULE PO PRN ×2 (14:09→22:23)
[2022-03-26] MEDS: MEROPENEM 1 GM VIAL IVP SCH (15:20)
[2022-03-26 16:00] VITALS: BP 92/60
[2022-03-26] MEDS ORDERED: VANCOMYCIN 1G/250ML KIT 250 ML IV ONE (18:00)
[2022-03-26] MEDS: METRONIDAZOLE 500 MG TABLET PO SCH (18:40)
[2022-03-26] MEDS ORDERED: RENAL DOSE IV PRN (19:00)
[2022-03-26] MEDS: ATORVASTATIN 40 MG TABLET PO SCH (20:27)
[2022-03-26] MEDS ORDERED: ZIPRASIDONE MESYLATE 20 MG/VIAL IM SCH (20:30)
[2022-03-26 21:29] LABS: AMMONIA < 3 umol/L (11-32); THYROID STIMULATING HORMONE 2.86 uIU/mL (0.36-3.74)
[2022-03-26] MEDS: ENOXAPARIN SODIUM 100 MG/1 ML SQ SCH (22:00)
[2022-03-27] VITALS (7 sets, daily range): BP systolic 90–140; BP diastolic 37–61
[2022-03-27] MEDS: METRONIDAZOLE 500 MG TABLET PO SCH ×3 (01:47→17:48)
[2022-03-27] MEDS ORDERED: HALOPERIDOL INJ 5 MG/ML VIAL IM SCH (02:00)
[2022-03-27 04:01] LABS: HEMATOCRIT 40.3 % (36-48); MEAN CORPUSCULAR HEMOGLOBIN 30.6 pg (27.0-33.0); MEAN CORPUSCULAR HGB CONC 31.8 g/dL (32.0-36.0); MEAN CORPUSCULAR VOLUME 96.4 fL (79-99); RED BLOOD CELL COUNT(AUTO) 4.18 MIL/uL (4.00-5.50); RED CELL DISTRIBUTION WIDTH 16.3 % (11.0-15.5); WHITE BLOOD COUNT (AUTO) 9.7 K/uL (4.8-10.8)
[2022-03-27 04:11] LABS: CREATININE 7.4 mg/dL (0.5-1.5)
[2022-03-27] MEDS: IPRATROPIUM 0.5 MG/2.5 ML INH IH SCH ×4 (06:00→23:22)
[2022-03-27] MEDS: ALBUTEROL 0.083% 2.5 MG/3 ML INH IH SCH ×4 (06:00→23:22)
[2022-03-27] MEDS: INSULIN HUMULIN R 100 UNIT/ML 3ML SQ SCH ×4 (06:37→20:42)
[2022-03-27] MEDS: ZYVOX 600 MG TAB PO SCH ×2 (08:50→20:35)
[2022-03-27] MEDS: ASPIRIN 325MG TAB PO SCH (08:50)
[2022-03-27] MEDS: FAMOTIDINE 20MG TAB PO SCH (08:50)
[2022-03-27] MEDS: CLOPIDOGREL 75MG TAB PO SCH (08:50)
[2022-03-27] MEDS: SODIUM HYPOCHLORITE 0.25% [HALF STRENGTH] 473 ML TOPICAL SOLN TP SCH ×2 (08:51→20:44)
[2022-03-27] MEDS: NYSTATIN 15 GM POWDER TP SCH ×2 (08:51→20:44)
[2022-03-27] MEDS ORDERED: VANCOMYCIN 500MG+NS 100ML 100 ML IV SCH (09:00)
[2022-03-27] MEDS: METOPROLOL SUCCINATE 25 MG TAB.SR.24H PO SCH (09:00)
[2022-03-27] MEDS ORDERED: LORAZEPAM 0.5 MG TABLET PO PRN (16:30)
[2022-03-27] MEDS ORDERED: OLANZAPINE ODT 5 MG TAB SL SCH (17:30)
[2022-03-27] MEDS ORDERED: OLANZAPINE 5 MG TAB PO SCH (17:30)
[2022-03-27] MEDS: ATORVASTATIN 40 MG TABLET PO SCH (20:35)
[2022-03-27] MEDS: ENOXAPARIN SODIUM 100 MG/1 ML SQ SCH (20:36)
[2022-03-28] VITALS (22 sets, daily range): BP systolic 83–118; BP diastolic 38–70
[2022-03-28] MEDS: METRONIDAZOLE 500 MG TABLET PO SCH ×3 (01:59→21:13)
[2022-03-28] MEDS: ACETAMINOPHEN 325 MG TAB PO PRN (02:03)
[2022-03-28] MEDS: INSULIN HUMULIN R 100 UNIT/ML 3ML SQ SCH ×3 (06:07→21:00)
[2022-03-28] MEDS: ALBUTEROL 0.083% 2.5 MG/3 ML INH IH SCH ×3 (06:59→23:49)
[2022-03-28] MEDS: IPRATROPIUM 0.5 MG/2.5 ML INH IH SCH ×4 (06:59→23:49)
[2022-03-28] MEDS ORDERED: LEVOFLOXACIN 500 MG TABLET PO SCH (08:00)
[2022-03-28 08:16] LABS: HEMATOCRIT 40.2 % (36-48); MEAN CORPUSCULAR HEMOGLOBIN 31.1 pg (27.0-33.0); MEAN CORPUSCULAR HGB CONC 32.1 g/dL (32.0-36.0); MEAN CORPUSCULAR VOLUME 96.9 fL (79-99); NUCLEATED RED BLOOD CELLS 0.2 % (0.0-0.19); RED BLOOD CELL COUNT(AUTO) 4.15 MIL/uL (4.00-5.50); RED CELL DISTRIBUTION WIDTH 16.6 % (11.0-15.5); WHITE BLOOD COUNT (AUTO) 9.1 K/uL (4.8-10.8)
[2022-03-28 08:27] LABS: POTASSIUM 4.3 mmol/L (3.5-5.1)
[2022-03-28 08:29] LABS: CREATININE 8.4 mg/dL (0.5-1.5)
[2022-03-28] MEDS: NYSTATIN 15 GM POWDER TP SCH ×2 (09:00→21:14)
[2022-03-28] MEDS: METOPROLOL SUCCINATE 25 MG TAB.SR.24H PO SCH (09:00)
[2022-03-28] MEDS: SODIUM HYPOCHLORITE 0.25% [HALF STRENGTH] 473 ML TOPICAL SOLN TP SCH ×2 (09:00→21:14)
[2022-03-28] MEDS: ASPIRIN 81MG CHEW TAB PO SCH (09:03)
[2022-03-28] MEDS: FAMOTIDINE 20MG TAB PO SCH (09:03)
[2022-03-28] MEDS: CLOPIDOGREL 75MG TAB PO SCH (09:04)
[2022-03-28] MEDS: ZYVOX 600 MG TAB PO SCH ×2 (09:04→21:13)
[2022-03-28] MEDS ORDERED: VANCOMYCIN 1G/250ML KIT 250 ML IV SCH (16:00)
[2022-03-28] MEDS: MIDODRINE HCL 5 MG TABLET PO SCH (16:13)
[2022-03-28] MEDS: ATORVASTATIN 40 MG TABLET PO SCH (21:13)
[2022-03-28] MEDS: ENOXAPARIN SODIUM 100 MG/1 ML SQ SCH (21:14)
[2022-03-29] VITALS (7 sets, daily range): BP systolic 99–118; BP diastolic 24–76
[2022-03-29] MEDS: METRONIDAZOLE 500 MG TABLET PO SCH (03:14)
[2022-03-29] MEDS: IPRATROPIUM 0.5 MG/2.5 ML INH IH SCH ×4 (06:34→23:48)
[2022-03-29] MEDS: ALBUTEROL 0.083% 2.5 MG/3 ML INH IH SCH ×4 (06:34→23:48)
[2022-03-29] MEDS: INSULIN HUMULIN R 100 UNIT/ML 3ML SQ SCH ×4 (06:37→21:59)
[2022-03-29] MEDS: METOPROLOL SUCCINATE 25 MG TAB.SR.24H PO SCH (09:00)
[2022-03-29] MEDS: ASPIRIN 81MG CHEW TAB PO SCH (09:10)
[2022-03-29] MEDS: CLOPIDOGREL 75MG TAB PO SCH (09:11)
[2022-03-29] MEDS: FAMOTIDINE 20MG TAB PO SCH (09:11)
[2022-03-29] MEDS: ZYVOX 600 MG TAB PO SCH (09:11)
[2022-03-29] MEDS: SODIUM HYPOCHLORITE 0.25% [HALF STRENGTH] 473 ML TOPICAL SOLN TP SCH ×2 (09:12→20:12)
[2022-03-29] MEDS: NYSTATIN 15 GM POWDER TP SCH ×2 (09:12→20:12)
[2022-03-29] MEDS: ZOSYN 3.375GM +NS 50ML IVPB SCH ×2 (13:47→20:11)
[2022-03-29] MEDS: ATORVASTATIN 40 MG TABLET PO SCH (20:11)
[2022-03-30] VITALS (18 sets, daily range): BP systolic 89–128; BP diastolic 28–81
[2022-03-30] MEDS: INSULIN HUMULIN R 100 UNIT/ML 3ML SQ SCH ×3 (05:38→16:30)
[2022-03-30 06:36] LABS: BASOPHILS % (AUTO) 0.3 % (0.0-5.0); EOSINOPHILS % (AUTO) 3.9 % (0.0-8.0); HEMATOCRIT 39.2 % (36-48); MEAN CORPUSCULAR HEMOGLOBIN 30.7 pg (27.0-33.0); MEAN CORPUSCULAR HGB CONC 32.1 g/dL (32.0-36.0); MEAN CORPUSCULAR VOLUME 95.6 fL (79-99); MONOCYTES % (AUTO) 11.4 % (3.0-13.0); NEUTROPHILS % (AUTO) 75.9 % (40.0-77.0); PLATELET COUNT (AUTO) 119 K/uL (130-400); RED CELL DISTRIBUTION WIDTH 17.6 % (11.0-15.5); WHITE BLOOD COUNT (AUTO) 7.4 K/uL (4.8-10.8)
[2022-03-30 06:45] LABS: ALBUMIN 2.8 g/dL (3.5-5.0); CREATININE 7.2 mg/dL (0.5-1.5); POTASSIUM 3.7 mmol/L (3.5-5.1); TOTAL PROTEIN, SERUM 6.2 g/dL (6.0-8.3)
[2022-03-30] MEDS: ALBUTEROL 0.083% 2.5 MG/3 ML INH IH SCH ×2 (07:20→11:36)
[2022-03-30] MEDS: IPRATROPIUM 0.5 MG/2.5 ML INH IH SCH ×2 (07:20→11:36)
[2022-03-30] MEDS: ASPIRIN 81MG CHEW TAB PO SCH (09:00)
[2022-03-30] MEDS: NYSTATIN 15 GM POWDER TP SCH (09:00)
[2022-03-30] MEDS: FAMOTIDINE 20MG TAB PO SCH (09:00)
[2022-03-30] MEDS: SODIUM HYPOCHLORITE 0.25% [HALF STRENGTH] 473 ML TOPICAL SOLN TP SCH (09:00)
[2022-03-30] MEDS: METOPROLOL SUCCINATE 25 MG TAB.SR.24H PO SCH (09:00)
[2022-03-30] MEDS: CLOPIDOGREL 75MG TAB PO SCH (09:00)
[2022-03-30] MEDS: ZOSYN 3.375GM +NS 50ML IVPB SCH (10:09)
[2022-03-30] MEDS: ACETAMINOPHEN 325 MG TAB PO PRN (10:10)
[2022-03-30] MEDS: MIDODRINE HCL 5 MG TABLET PO SCH (10:21)
== END 2022-03-30 19:00 | DRG 356 ==
LOC: EDH 09:51 → EDHIP 14:36 → 3DH 22:31
PROVIDERS: ADMIT Internal Medicine Critical Care Medicine; ATTEND Internal Medicine Critical Care Medicine
PROC: 0JB90ZZ Excision of Buttock Subcutaneous Tissue and Fascia, Open Approach (ICD-10-PCS; 2022-03-24)
PROC: 0J990ZZ Drainage of Buttock Subcutaneous Tissue and Fascia, Open Approach (ICD-10-PCS; principal; 2022-03-24 11:34)
DX: K61.2 Anorectal abscess (principal); G93.41 Metabolic encephalopathy; N18.6 End stage renal disease; I21.A1 Myocardial infarction type 2; E87.1 Hypo-osmolality and hyponatremia; I13.2 Hypertensive heart and chronic kidney disease with heart failure and with stage 5 chronic kidney disease, or end stage renal disease; L02.31 Cutaneous abscess of buttock; I24.9 Acute ischemic heart disease, unspecified; F32.2 Major depressive disorder, single episode, severe without psychotic features; L03.317 Cellulitis of buttock; Z99.2 Dependence on renal dialysis; D64.9 Anemia, unspecified; I25.10 Atherosclerotic heart disease of native coronary artery without angina pectoris; Z95.1 Presence of aortocoronary bypass graft; K62.89 Other specified diseases of anus and rectum; E11.22 Type 2 diabetes mellitus with diabetic chronic kidney disease; I50.82 Biventricular heart failure; R21 Rash and other nonspecific skin eruption; R00.0 Tachycardia, unspecified; I08.3 Combined rheumatic disorders of mitral, aortic and tricuspid valves; Z95.3 Presence of xenogenic heart valve; I95.9 Hypotension, unspecified; Z88.5 Allergy status to narcotic agent; Z88.8 Allergy status to other drugs, medicaments and biological substances; E11.65 Type 2 diabetes mellitus with hyperglycemia; E66.01 Morbid (severe) obesity due to excess calories; E78.00 Pure hypercholesterolemia, unspecified; F41.1 Generalized anxiety disorder; F43.20 Adjustment disorder, unspecified; I44.7 Left bundle-branch block, unspecified; Z53.20 Procedure and treatment not carried out because of patient's decision for unspecified reasons; Z68.36 Body mass index [BMI] 36.0-36.9, adult; Z90.49 Acquired absence of other specified parts of digestive tract; Z91.15 Patient's noncompliance with renal dialysis; Z91.199 Patient's noncompliance with other medical treatment and regimen due to unspecified reason
CPT/HCPCS: 36415; 46050; 70450; 71045; 74176; 80048; 80053; 80202; 82140; 82550; 82948; 83605; 83735; 83874; 83880; 84100; 84145; 84443; 84484; 85025; 85027; 85610; 86704; 86706; 87040; 87070; 87076; 87340; 87635; 90935; 93005; 93306; 94640; 94660; 94664; 96374; 96375; 97039; C1894; G0378; J0330; J1200; J1630; J1644; J1650; J1815; J2001; J2185; J2270; J2405; J2543; J2704; J2930; J3010; J3486; J3490; J7070; Q0163